=== PATIENT | female | born 1940 | race Caucasian/White ===

== ENCOUNTER 2017-03-22 00:19 | Inpatient (IN) ==
[2017-03-22] MEDS ORDERED: ASPIRIN PO STA (00:25)
[2017-03-22] MEDS ORDERED: G.I. COCKTAIL PO ONE (01:26)
[2017-03-22] MEDS ORDERED: DILAUDID ONE ×2 (02:09→06:27)
[2017-03-22] MEDS ORDERED: ZOFRAN ONE (02:09)
[2017-03-22 02:11] LABS: MANUAL DIFF NEEDED? NO
[2017-03-22 02:15] LABS: BASO% 0.1 % (0.0-0.8); EOS# 0.05 X1000 (0.0-0.7); EOS% 0.7 % (0.0-10.0); HEMOGLOBIN 14.7 g/dL (12.0-16.0); IMM GRAN# 0.02 X1000 (0.0-0.04); IMM GRAN% 0.3 % (0.0-0.5); LYMPH# 0.78 X1000 (1.2-3.4); LYMPH% 10.6 % (20.5-51.1); MCH 29.2 PG (27-31); MCHC 33.4 g/dL (33-37); MCV 87.3 FL (81-99); MONO# 0.59 X1000 (0.11-0.59); MPV 10.4 FL (7.4-10.4); NEUT% 80.3 % (42.2-75.2); PLT 414 X1000 (130-400); RBC 5.04 XMIL (4.2-5.4)
[2017-03-22] MEDS ORDERED: DILAUDID IV ONE ×2 (02:16→06:25)
[2017-03-22] MEDS ORDERED: ZOFRAN IV ONE (02:16)
[2017-03-22 02:32] LABS: INR 1.04; PROTIME 10.9 Seconds (9.2-11.7); PTT 23.6 Seconds (22.0-36.0)
[2017-03-22 02:40] LABS: ALBUMIN 3.3 g/dL (3.5-5.0); CALCIUM 10.4 mg/dL (8.8-10.2); MAGNESIUM 1.6 mg/dL (1.5-2.7); POTASSIUM 2.9 mmol/L (3.5-5.1); TOTAL PROTEIN 7.4 g/dL (6.3-8.3)
[2017-03-22] MEDS ORDERED: PROTONIX 80 MG in NS 80 ML IV ONE (04:42)
[2017-03-22] MEDS ORDERED: CARAFATE LIQUID PO ONE (04:42)
--- NOTE | 2017-03-22 04:48 | PROVIDER DOCUMENTATION ---
This chart was entered by Shawna Bella Scribe, acting as scribe for Brian Payne MD. HPI-Chest Pain - General Chief Complaint: Generalized Pain Stated Complaint: CP Time Seen by Provider: 03/22/17 01:16 Source: patient Allergies/Adverse Reactions: Patient Allergies Allergy/AdvReac Type Severity Reaction Status Date / Time Sulfa (Sulfonamide Allergy Intermediate NAUSEA Verified 03/22/17 01:45 Antibiotics) Home Medications: Home Medication List Medication Instructions Recorded Confirmed Last Taken Type Lisinopril/Hydrochlorothiazide 1 each PO DAILY 10/06/13 03/22/17 03/21/17 07:00 History [Lisinopril-Hctz 20-25 mg Tab] - History of Present Illness-CP Nature of Presenting Problem: 76 Y/O F presents to ED with CP. Pt states that she has lower epigastric, describes the pain as "hurt". States radiates arsenio back . Similar episode prior treated in [facility], received GI cocktail states felt better received a Rx and did not fill. Location: reports: epigastric Chest Pain Radiation: reports: back. denies: no radiation, arms, neck, shoulders Quality of Pain: reports: aching Severity in ED: moderate Onset/Duration: 24 hours ago Timing: still present Context/Activities at Onset: reports: none Associated Symptoms: reports: back pain. denies: fever/chills, nausea, shortness of breath Nitro Today/Relief: no nitro taken today Aspirin Treatment Today: no aspirin today Review of Systems - Adult - REVIEW OF SYSTEMS - ADULT Constitutional: denies: chills, fever Eyes: reports: no symptoms reported Ears, Nose, Mouth & Throat: reports: no symptoms reported Cardiovascular: reports: chest pain. denies: palpitations, syncope Respiratory: denies: cough, shortness of breath Gastrointestinal: reports: no symptoms reported Genitourinary: reports: no symptoms reported Musculoskeletal: reports: no symptoms reported Integumentary: reports: no symptoms reported Neurological: reports: no symptoms reported Psychiatric: reports: no symptoms reported Endocrine: reports: no symptoms reported Hematologic/Lymphatic: reports: no symptoms reported Allergic/Immunologic: reports: no symptoms reported All Other Systems: Reviewed and Negative Past History - Adult - PAST MEDICAL HISTORY-ADULT Review of Records: reports: Old Records Reviewed, Nursing Assessment Review, Medications Reviewed, Social history reviewed & non-contributory. Respiratory: reports: asthma Gastrointestinal: reports: other (rupurted esophagus) - PRIOR SURGERIES/PROCEDURES Surgical/Procedure History: reports: other (esophageal ruptured) - IMMUNIZATION STATUS Childhood Immunizations: See Nurse Assessment Flu Vaccine: See Nurse Assessment - SOCIAL HISTORY Smoking: quit greater than 1 year Substance Use: none/never Alcohol Use Frequency: never Physical Exam-General - PHYSICAL EXAM-ADULT Initial Vital Signs Reviewed: Yes - CONSTITUTIONAL General Appearance: appears well, alert, no apparent distress - EYES Eyes: PERRL/EOMI, pink conjunctivae - HEAD, EARS, NOSE, MOUTH & THROAT HENMT: normocephalic/atraumatic, moist mucous membranes, normal ENT inspection, TMs normal, pharynx normal - NECK Neck: non-tender, full range of motion, supple, normal inspection - RESPIRATORY Respiratory: chest non-tender, lungs clear, normal breath sounds - CARDIOVASCULAR Cardiovascular: normal peripheral pulses, regular rate, rhythm, no edema, no gallop, no JVD, no murmur - CHEST (BREASTS) Chest/Breast: tenderness (with pressure when pressing on abdomen, causes epigastric pain to worsen) - GASTROINTESTINAL (ABDOMEN) Abdominal Exam: normal bowel sounds, non tender, soft, no organomegaly, no pulsatile mass - LYMPHATIC Lymphatic: no adenopathy - MUSCULOSKELETAL Back Exam: normal inspection, no CVA tenderness, no vertebral tenderness Extremity: normal range of motion, non-tender, normal gait, normal inspection - SKIN Integumentary: normal color, normal turgor, warm/dry - NEUROLOGIC Neurologic: ob scrub tech II-XII nml as tested, no motor/sensory deficits - PSYCHIATRIC Psych/Mental Status: normal mood/affect, normal thought content, normal thought process, oriented x 3 Progress - PLAN OF CARE/RESULTS Progress/Plan/Lab Results: Vital Signs - 8 hr 03/22/17 00:27 Temperature 96.9 F L Pulse Rate 77 Respiratory Rate 20 Blood Pressure 99/61 O2 Sat by Pulse Oximetry 95 Laboratory Results - last 24 hr 03/22/17 03/22/17 03/22/17 01:50 01:50 01:50 WBC 7.35 RBC 5.04 Hgb 14.7 Hct 44.0 MCV 87.3 MCH 29.2 MCHC 33.4 RDW Std Deviation 14.0 Plt Count 414 H MPV 10.4 Immature Gran % (Auto) 0.3 Neut % (Auto) 80.3 H Lymph % (Auto) 10.6 L [place] % (Auto) 8.0 Eos % (Auto) 0.7 Baso % (Auto) 0.1 Immature Gran # (Auto) 0.02 Neut # (Auto) 5.90 Lymph # (Auto) 0.78 L Boss[place] # (Auto) 0.59 Eos # (Auto) 0.05 Baso # (Auto) 0.01 PT INR PTT (Actin FS) D-Dimer 4.72 H Sodium 140 Potassium 2.9 L Chloride 95 L Carbon Dioxide 26 Anion Gap 19 BUN 12 Creatinine 1.0 H Estimated GFR/1.73 m2 54 BUN/Creatinine Ratio 12 Glucose 115 H Calculated Osmolality 280 Calcium 10.4 H Magnesium 1.6 Total Bilirubin 1.00 AST 394 H ALT 505 H Alkaline Phosphatase 77 Creatine Kinase 33 Troponin T Xxc-M-Yaiaxbmxmhw Pept Total Protein 7.4 Albumin 3.3 L Globulin 4.1 Albumin/Globulin Ratio 0.8 Lipase 03/22/17 03/22/17 03/22/17 01:50 01:50 01:50 WBC RBC Hgb Hct MCV MCH MCHC RDW Std Deviation Plt Count MPV Immature Gran % (Auto) Neut % (Auto) Lymph % (Auto) [place] % (Auto) Eos % (Auto) Baso % (Auto) Immature Gran # (Auto) Neut # (Auto) Lymph # (Auto) [place] # (Auto) Eos # (Auto) Baso # (Auto) PT 10.9 INR 1.04 PTT (Actin FS) 23.6 D-Dimer Sodium Potassium Chloride Carbon Dioxide Anion Gap BUN Creatinine Estimated GFR/1.73 m2 BUN/Creatinine Ratio Glucose Calculated Osmolality Calcium Magnesium Total Bilirubin AST ALT Alkaline Phosphatase Creatine Kinase Troponin T < 0.010 Zsx-G-Tvhmeotslaw Pept 1199 H Total Protein Albumin Globulin Albumin/Globulin Ratio Lipase 03/22/17 01:50 WBC RBC Hgb Hct MCV MCH MCHC RDW Std Deviation Plt Count MPV Immature Gran % (Auto) Neut % (Auto) Lymph % (Auto) [place] % (Auto) Eos % (Auto) Baso % (Auto) Immature Gran # (Auto) Neut # (Auto) Lymph # (Auto) [place] # (Auto) Eos # (Auto) Baso # (Auto) PT INR PTT (Actin FS) D-Dimer Sodium Potassium Chloride Carbon Dioxide Anion Gap BUN Creatinine Estimated GFR/1.73 m2 BUN/Creatinine Ratio Glucose Calculated Osmolality Calcium Magnesium Total Bilirubin AST ALT Alkaline Phosphatase Creatine Kinase Troponin T Byh-C-Gksysbeofuz Pept Total Protein Albumin Globulin Albumin/Globulin Ratio Lipase 19 Orders Category Date Time Status Cardiac Monitoring DIRECTED Care 03/22/17 00:25 Active Saline Loc NOW Care 03/22/17 00:25 Active ANGIOGRAM/PULMONARY ARTERIES [CT] Stat Exams 03/22/17 02:55 Taken CHEST-2 VIEWS [RAD] Stat Exams 03/22/17 00:25 Taken CBC WITH ELECTRONIC DIFF [HEME] Stat Lab 03/22/17 01:50 Completed CK PROFILE [SP CHEM] Stat Lab 03/22/17 01:50 Completed COMPREHENSIVE METABOLIC PANEL [CHEM] Stat Lab 03/22/17 01:50 Completed D-DIMER [CHEM] Stat Lab 03/22/17 01:50 Completed LIPASE [CHEM] Stat Lab 03/22/17 01:50 Completed MAGNESIUM [CHEM] Stat Lab 03/22/17 01:50 Completed PRO B-NATRIURETIC PEPTIDE Stat Lab 03/22/17 01:50 Completed PROTIME WITH INR [COAG] Stat Lab 03/22/17 01:50 Completed PTT [COAG] Stat Lab 03/22/17 01:50 Completed TROPONIN T Stat Lab 03/22/17 01:50 Completed Aspirin Med 03/22/17 00:25 Discontinued 325 mg PO STAT STA Hydromorphone [Dilaudid] Med 03/22/17 02:09 Discontinued 1 mg .ROUTE .STK-MED ONE Hydromorphone [Dilaudid] Med 03/22/17 02:16 Discontinued 1 mg IV NOW ONE Lido/Stallings Alk/Al&mg Hydrox [G.i. Cocktail] Med 03/22/17 01:26 Discontinued 30 ml PO NOW ONE Ondansetron [Zofran] Med 03/22/17 02:09 Discontinued 4 mg .ROUTE .STK-MED ONE Ondansetron [Zofran] Med 03/22/17 02:16 Discontinued 4 mg IV NOW ONE Pantoprazole [Protonix] 80 mg Med 03/22/17 04:42 Active 0.9% Sodium Chloride Inj [Ns] 80 ml IV NOW Sucralfate [Carafate Liquid] Med 03/22/17 04:42 Discontinued 1 gm PO NOW ONE EKG [EKG] Stat Ther 03/22/17 00:25 Ordered During exam pt stated that the pain was worsened by Dr. Foss' pressing on her stomach worssened the Epigastric pain. Result Diagrams: 03/22/17 01:50 03/22/17 01:50 - REASSESSMENT Reassessment #1 Time Reassessed: 03:01 (PAIN MUCH BETTER, RE EXAM OF ABDOMEN REVEALS + OSBORNE'S SIGN) Status: improving - EKG 1 Time of EKG reading by physician:: 00:28 EKG Read and Signed by:: Brian Payne EKG Interpretation (*Must complete 3 of following elements*): Abnormal Rate: 77 Rhythm: SR w/ marked Sinus arrhythmia w/ occassional premature ventricular complexe [place]: left (deviation) QRS: LVH (with repolarization abnormality) Comments: Prolonged QT, Abnormal ECG - XRAY 1 XRAY Study: Chest Impression: Normal XRAY Interpretation: NAD - CT/MRI 1 CT Study: Angiogram Impression: Abnormal (11.7 mm hypodense hepatic lobe mass, trace ascites, distal esophagitis) Departure - Departure Time of Disposition Decision: 04:40 DIAGNOSIS: Esophagitis, Liver mass, right lobe Disposition: ADMITTED INPATIENT 09 Certified Medical Emergency: Emergent Condition: Good Referrals and Follow-Ups: Tao Murphy [Primary Care Provider] - - Critical Care Note This patient required my direct personal management.: No This chart was documented by the indicated scribe, (Shawna Bella Scribe) and accurately reflects the services I performed and decisions made by me, Brian Payne MD, as attested by the provider's signature.
--- NOTE | 2017-03-22 05:43 | EKG Report ---
Test Performed on : 03/22/2017 00:28:07 AM Test Reason : Chest Pain Blood Pressure : / mmHG Vent. Rate : 077 BPM Atrial Rate : 077 BPM P-R Int : 154 ms QRS Dur : 094 ms QT Int : 456 ms P-R-T Axes : -01 -39 -04 degrees QTc Int : 516 ms Sinus rhythm. with marked sinus arrhythmia. with occasional premature ventricular complexes. Left axis deviation Left ventricular hypertrophy with repolarization abnormality Prolonged QT Abnormal ECG When compared with ECG of 20-FEB-2017 13:42, premature ventricular complexes. are now present Inverted T waves have replaced nonspecific T wave abnormality in Inferior leads QT has lengthened Unconfirmed Result
--- NOTE | 2017-03-22 06:42 | Diag Imaging Result Document ---
PROCEDURE NAME: ANGIOGRAM/PULMONARY ARTERIES - 03/22/2017 CT CHEST WITH INTRAVENOUS CONTRAST: COMPARISON: 02/20/2017. FINDINGS: The timing is somewhat suboptimal, however, there are no filling defects within the pulmonary arteries or their main branches. The heart is enlarged. No pleural effusions. The ascending aorta is stable at 4 cm. No aortic dissection. There is fluid in the esophagus. No enlarged mediastinal or hilar lymph nodes. Stable 8 mm nodule in the right upper lobe. There is atelectasis in the lower lungs. No consolidation. No bronchiectasis. Limited images through the upper abdomen reveal a cholecystectomy with a tiny amount of fluid about the liver and spleen. There is a 12 mm nonspecific hypodense nodule inferiorly within the liver. The spleen is not enlarged. IMPRESSION: 1. No pulmonary emboli. 2. Cardiomegaly. 3. Stable right upper lobe nodule. 4. Calcified left hilar lymph nodes. 5. Fluid distended esophagus may represent gastroesophageal reflux. 6. Basilar atelectasis. 7. Trace fluid in the pelvis with a cholecystectomy and a nonspecific hypodense nodule within the liver. A preliminary report was given at 4:30 a.m..
[2017-03-22] MEDS: POTASSIUM CHLORIDE 20 MEQ/SWI 20 MEQ/100 ML IVPB IV SCH ×2 (06:43→14:28)
--- NOTE | 2017-03-22 06:48 | Diag Imaging Result Document ---
PROCEDURE NAME: CHEST-2 VIEWS - 03/22/2017 FRONTAL AND LATERAL SITTING CHEST, TWO VIEWS: COMPARISON: 02/20/2017. FINDINGS: Poor inspiratory effort. The heart is mildly enlarged. The vessels are not distended. No pleural effusions. No consolidation. No free air beneath the diaphragm. IMPRESSION: Poor inspiratory effort with mild cardiomegaly.
[2017-03-22] MEDS ORDERED: TYLENOL PO PRN (07:38)
[2017-03-22] MEDS ORDERED: SODIUM CHLORIDE 0.9% INJ SCH (07:38)
[2017-03-22] MEDS ORDERED: SALINE LOCK IV FLUID XX ONE (07:38)
--- NOTE | 2017-03-22 10:20 | Diag Imaging Result Document ---
PROCEDURE NAME: US ABDOMEN-COMPLETE - 03/22/2017 ABDOMINAL ULTRASOUND: FINDINGS: The liver contains a cyst in the right lobe measuring 11 x 13 mm. The pancreatic body is normal in appearance, and the remainder is not well seen. The aorta and inferior vena cava are normal in appearance where they are visible. The gallbladder is surgically absent. The common bile duct is dilated to 14 mm but this may be physiologic. There is antegrade flow in the portal vein. The spleen is not enlarged. The kidneys are without evidence of hydronephrosis or mass. There is some shadowing from the central renal echo complex in the left kidney which may be due to a stone measuring 16 mm in greatest dimension. IMPRESSION: Left nephrolithiasis. Dilatation of the common bile duct. This may be physiologic in a postcholecystectomy state. The lesion demonstrated on CT on 03/22/2017 in the inferior right hepatic lobe is apparently a cyst.
[2017-03-22] MEDS: ZOFRAN IV PRN ×2 (10:27→19:48)
[2017-03-22] MEDS: NS 1,000 ML IV SCH (10:28)
[2017-03-22] MEDS: LOVENOX SUBQ SCH (10:36)
--- NOTE | 2017-03-22 13:13 | HISTORY AND PHYSICAL ---
PRIMARY CARE PROVIDER: The patient does not have a primary care provider. DATE AND TIME: 03/22/2017 at 0630 hours. CHIEF COMPLAINT: Chest pain. HISTORY OF PRESENT ILLNESS: Ms. Kaur is a 76-year-old, female with a past medical history most notable for asthma, gastroesophageal reflux disease and hypertension. She presented tonight with initial stated complaint of chest pain, although upon evaluation in the ER this was found to be more epigastric pain, as well as right upper quadrant pain. The patient states that she was seen approximately 1 month ago at [facility] for same complaint. She was given a prescription for reflux disease, although did not get this filled stating that she felt better. The patient complains of epigastric pain that radiates straight through to her back. The patient was evaluated for cardiac involvement in the ER. First set of CK and troponin were negative. EKG showed sinus rhythm with marked sinus arrhythmia and occasional PVCs at a rate of 77, QTc was 516. Upon evaluation of the patient's CMP, she did have elevated AST and ALT, as well as an elevated D- dimer of 4.72 with a previous D-dimer approximately 1 month ago of 0.81. Due to these findings, Dr. Payne did order a CTA of the chest which showed no pulmonary embolism, although did show cardiomegaly, a full distended esophagus which may represent gastroesophageal reflux disease, bibasilar atelectasis, with also findings of a 12 mm nonspecific hypodense nodule inferiorly within the liver. The patient denies any headache, dizziness, shortness of breath. She has had some nausea and did report 1 episode of vomiting a day or 2 ago. She denies any hematemesis. She denies any diarrhea or constipation, stating that her last bowel movement was yesterday. She also denies any hematochezia or melena. She denies any dysuria or urinary frequency , or pain, numbness or tingling or swelling in extremities. She denies any fever, body aches or chills. She denies any previous known history of congestive heart failure or known history of pulmonary embolism or DVT. At this time, we will admit the patient for further treatment evaluation of her liver mass and esophagitis. REVIEW OF SYSTEMS: A 12 point review of systems was conducted with the patient. All were negative, except for pertinent positives mentioned in the above HPI. PAST MEDICAL HISTORY: 1. Asthma. 2. Gastroesophageal reflux disease. 3. Hypertension. PAST SURGICAL HISTORY: 1. Appendectomy. 2. Cholecystectomy. 3. Hysterectomy. 4. Ruptured esophagus repair in 1994 secondary to food impaction. SOCIAL HISTORY: The patient denies any previous history of tobacco, alcohol or illicit drug use. She currently lives with her son. FAMILY HISTORY: Positive for history of Alzheimer in her mother. ALLERGIES: Patient reports allergy to sulfa. HOME MEDICATIONS: The patient does not have any prescription medications that are prescribed to her, but she states that she has been taking her son's lisinopril/ hydrochlorothiazide 20/25 mg tablet once daily as needed for high blood pressure. DIAGNOSTIC DATA AND LABORATORY RESULTS: White blood cell count 7.3, hemoglobin 14.7, hematocrit 44, platelet count is 414. PT 10.9, INR 1.04, PTT 23.6, D-dimer 4.72. Sodium 140, potassium 2.9, chloride 95, bicarbonate 26, BUN is 12, creatinine 1.0. GFR 54. Glucose 115. Calcium is 10.4, magnesium 1.6. Total bilirubin is 1.00, AST is 394, ALT is 504. Alkaline phosphatase is 77, CK 33, troponin less than 0.01 with a proBNP of 1199. Lipase was 19. EKG shows a sinus rhythm with marked sinus arrhythmia with occasional PVCs at a rate of 77. QTc is 516. Chest x-ray shows a poor inspiratory effort with mild cardiomegaly per radiologist. CT of the thorax showed no pulmonary embolus. Cardiomegaly. Stable right upper lobe nodule. Calcified left hilar lymph node. Full distended esophagus which may represent gastroesophageal reflux. Bibasilar atelectasis. Trace fluid in the pelvis with a cholecystectomy and a nonspecific hypodense nodules within the liver, which measures 12 mm. PHYSICAL EXAMINATION: VITAL SIGNS: Temperature 96.9 degrees, heart rate 63, respirations 18, blood pressure 124/82. Oxygen saturation is 99% on room air. GENERAL: Ms. Kaur is a very pleasant, 76-year-old female, who is resting comfortably in the ER. She is in no acute distress. She was awake, alert, able to answer all questions appropriately. HEENT: Head is atraumatic, normocephalic. Pupils are equal, round, reactive to light, 3 mm bilaterally. Conjunctivae were pink. Oral mucosa was moist. Oropharynx is clear. NECK: Supple. Trachea midline. Patient did have JVD noted upon examination. No carotid bruits noted upon auscultation bilaterally. CARDIOVASCULAR: Patient has normal S1, S2. She did have a systolic murmur noted, although no other gallops or rubs present. Heart rate is regular rate in the 70s that has a slightly irregular rhythm. PULMONARY: Patient has symmetrical chest expansion bilaterally. Lung sounds were clear to auscultation in bilateral upper lung dominguez. The bilateral lower lung dominguez did have crackles noted. ABDOMEN: Soft, nondistended, although the patient did have tenderness noted upon palpation in the epigastric area and right upper quadrant. No rebound tenderness noted. Bowel sounds are present all 4 quadrants and normoactive. EXTREMITIES: No cyanosis, clubbing, or edema noted. Pulses, motor and sensory were intact in all extremities. Pedal pulses are 2+ bilaterally. Capillary refills less than 3. INTEGUMENTARY: The patient's skin is pink, warm, dry and intact. No lesions or sores noted. NEUROLOGICAL: The patient is alert and oriented x3. Cranial nerves 2-12 are grossly intact. ASSESSMENT AND PLAN: 1. Liver mass. As previously mentioned, the patient does have a 12 mm nonspecific hypodense nodule within the liver noted. For further evaluation of this, we have ordered for the patient to have complete abdominal ultrasound this morning. We have also placed a consult with gastroenterology with Dr. Yousif, and we will await their evaluation and further recommendations. 2. Gastroesophageal reflux disease. We will keep the patient on Protonix 40 mg intravenous every 24 hours and await further evaluation and recommendations from gastroenterology. 3. Hypokalemia. We will give the patient 40 mEq of potassium intravenous due to her nausea and reported acid reflux and being on nothing by mouth at this time for abdominal ultrasound this morning. We will continue to follow. 4. Possible new onset of congestive heart failure. The patient does have jugular venous distention noted upon examination, as well as bilateral crackles in lung bases. She also did have a slight systolic murmur noted as well. An elevated proBNP of 1199. We have ordered for the patient to have an echocardiogram this morning, and we will continue to follow closely. 5. Hypertension. The patient reports that she has a history of hypertension, although her blood pressure in the emergency room has been within normal limits. We will monitor this closely and implement antihypertensive medications as needed. Her lisinopril/ hydrochlorothiazide tablets that she reports that she has been taking is not her prescription; it was her son's prescription. 6. Asthma. The patient reports that she does not currently take any medications for this, although does have a history of asthma. We will place as-needed DuoNeb treatment and will continue to follow. The patient was placed on the medical floor with telemetry. She will have vital signs q. 8 hours. We will do strict intake and output q. [address] her on daily weights. We will continue to do a series of cardiac enzymes and will repeat a CBC, CMP, and magnesium tomorrow morning. We also placed an order for a urinalysis and are waiting on these results at this time, as well as the results of abdominal ultrasound and echocardiogram. DVT prophylaxis provided with Lovenox 40 mg subcutaneous q. 24 hours. We will treat her pain with Dilaudid 1 mg IV q. 3 hours p.r.n. Other orders and recommendations pending hospital course, diagnostic studies and physician evaluation. Dictated by NU Curtis for Ramsey Elliott MD cc: MD FRANCISCA Hayes
[2017-03-22 14:25] LABS: URINE CULTURE NEEDED? NO; URINE SOURCE CLEAN CATCH
[2017-03-22] MEDS: DILAUDID IV PRN ×3 (14:29→23:53)
[2017-03-22 14:34] LABS: URINE MICRO REVIEW NEEDED? YES
[2017-03-22 14:40] LABS: BILIRUBIN URINE MODERATE (NEGATIVE); BLOOD URINE NEGATIVE (NEGATIVE); COLOR YELLOW; GLUCOSE URINE NEGATIVE (NEGATIVE); LEUKOCYTES URINE NEGATIVE (NEGATIVE); NITRITE URINE NEGATIVE (NEGATIVE); PROTEIN URINE 50 mg/dL (NEGATIVE); TURBIDITY URINE CLEAR (CLEAR); UR EPITHELIAL CELLS <10 /HPF (<10); URINE BACTERIA NEGATIVE /HPF; URINE WBC <10 /HPF (<10); UROBILINOGEN URINE NORMAL (NORMAL)
[2017-03-22 14:57] LABS: SP GRAVITY URINE > 1.030
[2017-03-22] MEDS: DUONEB (A & A) INH PRN (15:23)
--- NOTE | 2017-03-22 16:31 | PROGRESS NOTE ---
DATE: 03/22/2017 76-year-old who came in with chest pain. I believe she has been followed by Dr. Em. She has a past medical history most notable for asthma, gastroesophageal reflux, hypotension. She presented on 03/22/2017 with initial steady complaint of chest pain although on evaluation in the emergency room, she was found to have epigastric pain as well as right upper quadrant pain. The patient states that she was approximately 1 month ago at [facility] for some complaint and was given a prescription for reflux disease although she not get this filled since she felt better. Patient complains of epigastric pain. It radiates through to her back. The patient evaluated for cardiac evaluation in the emergency room. First set of CPK and troponin was negative. EKG showed sinus rhythm, marked sinus arrhythmia with PVCs at a rate of 77. ASSESSMENT AND PLAN: 1. Apparently has a liver mass, previously mentioned, 12 mm nonspecific hypodense nodule within the liver. Dr. Yousif is going to follow. She has a history gastroesophageal reflux. She is on Protonix. 2. Hyperkalemia. 3. Possible onset of congestive heart failure. She did have jugular venous distention. Bilateral crackles in the bases. Slight systolic murmur. 4. Hypertension. 5. Asthma. Review of orders: I do not see any change right now. She is getting a Protonix drip. Getting normal saline at 65 mL an hour. Abdominal ultrasound done this morning, left nephrolithiasis, dilatation of the common bile duct. This may be physiologic in a post cholecystectomy state. The lesion demonstrated on CT on 03/22/2017 the inferior right hepatic lobe is apparently a cyst. Pulmonary arteriogram was negative. No pulmonary emboli. There is trace fluid in the pelvis with cholecystectomy and nonspecific hypodense nodule within the liver. Patient is feeling better. Continue present orders. cc: Patrick Sorto MD
[2017-03-22] MEDS: SODIUM CHLORIDE 0.9% INJ SCH (17:44)
[2017-03-22] MEDS: PROTONIX IV SCH (17:44)
--- NOTE | 2017-03-22 20:23 | ECHO REPORT ---
ORDER DATE: 03/22/2017 MEASUREMENTS: Left ventricular end-diastolic diameter 3.8, end-systolic diameter 2.4, posterior wall thickness 1.4, septal thickness 1.3, left atrium 3.8, aortic root 3.4. SUMMARY: 1. Technically difficult study due to limited acoustic window quality. 2. Trileaflet aortic valve demonstrates mild aortic valve sclerosis with adequate aortic valve opening evident. Peak gradient across the aortic valve is 25 mmHg with a mean gradient of 8.8 mmHg. Gradient likely elevated in setting of hyperdynamic left ventricle. Mitral and tricuspid valves are without structural abnormality with trace mitral regurgitation and mild tricuspid regurgitation. Pulmonic valve is without structural abnormality with trace pulmonic regurgitation. The estimated systolic PA pressure by Doppler is 30 mmHg. The aortic root is normal in size. 3. Normal left ventricular chamber size with mild concentric left hypertrophy is demonstrated. Estimated left ejection fraction appears to be at least 70%. No regional wall motion abnormality is evident. Left atrium is mildly enlarged. Doppler suggests grade 1 left ventricular diastolic dysfunction due to impaired relaxation. Left atrium is mildly enlarged. Right atrium and right ventricle are normal in size with preserved right ventricular systolic function. 4. No pericardial effusion. 5. Appearance of inferior vena cava suggests normal central venous pressure. CONCLUSIONS: 1. Mild aortic valve sclerosis without significant stenosis with trace aortic regurgitation. 2. Mild tricuspid regurgitation. 3. Mild concentric left hypertrophy with estimated left ejection fraction at least 70%. 4. Grade 1 left ventricular diastolic dysfunction suggested. 5. Mild left atrial enlargement. cc: Hira Newman MD
[2017-03-23] MEDS: DILAUDID IV PRN (04:09)
[2017-03-23] MEDS: NS 1,000 ML IV SCH (04:11)
[2017-03-23] MEDS: SODIUM CHLORIDE 0.9% INJ SCH ×2 (05:20→18:09)
[2017-03-23] MEDS: PROTONIX IV SCH ×2 (05:20→18:11)
[2017-03-23] MEDS ORDERED: PROTONIX IV SCH (06:00)
[2017-03-23 06:44] LABS: BASO% 0.8 % (0.0-0.8); EOS# 0.01 X1000 (0.0-0.7); EOS% 0.2 % (0.0-10.0); HEMATOCRIT 44.5 % (37.0-47.0); HEMOGLOBIN 14.3 g/dL (12.0-16.0); IMM GRAN# 0.08 X1000 (0.0-0.04); IMM GRAN% 1.6 % (0.0-0.5); LYMPH# 0.55 X1000 (1.2-3.4); LYMPH% 11.1 % (20.5-51.1); MANUAL DIFF NEEDED? YES; MCH 28.9 PG (27-31); MCHC 32.1 g/dL (33-37); MCV 90.1 FL (81-99); MONO# 0.49 X1000 (0.11-0.59); MONO% 9.9 % (1.7-9.3); MPV 11.1 FL (7.4-10.4); NEUT% 76.4 % (42.2-75.2); PLT 348 X1000 (130-400); RBC 4.94 XMIL (4.2-5.4)
[2017-03-23 07:12] LABS: ALBUMIN 2.6 g/dL (3.5-5.0); MAGNESIUM 2.2 mg/dL (1.5-2.7); POTASSIUM 4.4 mmol/L (3.5-5.1); TOTAL BILIRUBIN 0.93 mg/dL (0.20-1.00); TOTAL PROTEIN 6.1 g/dL (6.3-8.3)
[2017-03-23 07:18] LABS: BANDS 10 % (0-1); LYMPHS 12 % (21-51); MONO 8 % (1-9)
[2017-03-23] MEDS: LOVENOX SUBQ SCH (09:04)
[2017-03-23] MEDS: DUONEB (A & A) INH PRN (09:17)
[2017-03-23] MEDS ORDERED: NS 500 ML IV ONE (12:25)
[2017-03-23] MEDS ORDERED: HALDOL IV ONE (14:07)
[2017-03-23] MEDS ORDERED: NS 1,000 ML IV SCH (15:00)
[2017-03-23] MEDS ORDERED: D50W SYRINGE ONE ×2 (15:51→22:18)
--- NOTE | 2017-03-23 15:52 | PROGRESS NOTE ---
DATE: 03/23/2017 SUBJECTIVE: To recall, Ms. Kaur was admitted on the . She came in with chest pain. She is a 76-year-old with a past medical history notable for asthma, gastroesophageal reflux, hypertension. She presented with initial stated chest pain. Evaluation in the emergency room she was found to have more epigastric pain as well as right upper quadrant pain. The patient states that she approximately 1 month ago was in [place] ER with this complaint and was given a prescription for reflux disease, although did not get this filled; she felt better. Patient complains epigastric pain radiates through to her back. The patient was evaluated and had cardiac involvement in the ER. First set of CPK and troponin were negative. EKG showed normal sinus rhythm, marked sinus rhythm versus PVCs. She was admitted. CT of the thorax showed no pulmonary embolus, stable right upper lobe nodule, calcified, left hilar lymph node, full distended esophagus which may represent gastroesophageal reflux. There was a questionable liver mass. However, on ultrasound, she had left nephrolithiasis and dilatation of the common bile duct. The lesion demonstrated on the CAT scan on the inferior right hepatic lobe was probably a cyst. Called this morning and blood pressure was low. She was moaning. We put her in Trendelenburg, gave her some fluid, and blood pressure has come up. She is confused. She is stating that she hurts all over. Any place you touch her it seems to hurt her. She remains afebrile. OBJECTIVE: Vital signs: Temperature 98.3 degrees, pulse 110, respirations 20, blood pressure 93/55. HEENT: Pupils are equal, round. Lungs: Clear in all lung dominguez. Cardiovascular: Regular rhythm and rate without murmur or S3. Abdomen: Soft. Skin: Warm and dry. LAB: White count 4,960, hematocrit 44, platelet count 348,000. Sodium 141, potassium 4.1, chloride 100, bicarb 19, BUN 31, creatinine 2.4. Blood sugar 70. Echocardiogram: Mild aortic valve sclerosis. Mild concentric LVH. Ejection fraction 70%. ASSESSMENT AND PLAN: We have given her quite a bit of fluid, fluid bolus, gave her 400 mL normal saline. She got Dilaudid last night. I think we are going to have to stay off of that. There is quite a bit of confusion and delirium right now. I gave her some Haldol. cc: Patrick Sorto MD
[2017-03-23] MEDS ORDERED: NARCAN ONE (16:00)
[2017-03-23 16:07] LABS: ALLEN TEST YES; BE -14.2 mmoll (-3.0-3.0); BLOOD TYPE ARTERIAL; DRAW SITE R RADIAL; METHB 1.7 % (0.0-1.5); O2(CT) 15.5 mL/dL (15.0-23.0); PCO2(98.6) 40 mmHg (35-45); PO2(98.6) 68 mmHg (60-100); SAMPLE BLOOD; SAO2 94.8 % (95.0-100.0)
[2017-03-23 16:10] LABS: pH(98.6) 7.15 (7.35-7.45)
[2017-03-23 16:11] LABS: MODALITY CANNULA
[2017-03-23] MEDS ORDERED: VANCOMYCIN 1 GM/NS 1 GM/250 ML IVPB IV ONE ×2 (16:20→16:30)
[2017-03-23] MEDS ORDERED: NS 1,000 ML IV ONE (16:22)
[2017-03-23] MEDS ORDERED: D50W SYRINGE IV ONE (16:22)
[2017-03-23] MEDS ORDERED: D5 NS 1,000 ML IV SCH (16:23)
[2017-03-23 16:43] LABS: URINE CULTURE NEEDED? NO; URINE SOURCE CATH
[2017-03-23 16:49] LABS: URINE MICRO REVIEW NEEDED? YES
[2017-03-23 16:53] LABS: BILIRUBIN URINE MODERATE (NEGATIVE); BLOOD URINE SMALL (NEGATIVE); COLOR YELLOW; GLUCOSE URINE NEGATIVE (NEGATIVE); LEUKOCYTES URINE NEGATIVE (NEGATIVE); NITRITE URINE NEGATIVE (NEGATIVE); PH URINE 5.5; PROTEIN URINE 50 mg/dL (NEGATIVE); TURBIDITY URINE HAZY (CLEAR); UR EPITHELIAL CELLS <10 /HPF (<10); URINE BACTERIA NEGATIVE /HPF; URINE RBC <10 /HPF (<10); URINE WBC <10 /HPF (<10); UROBILINOGEN URINE NORMAL (NORMAL)
[2017-03-23 16:56] LABS: URINE CASTS NONE SEEN
[2017-03-23] MEDS ORDERED: LEVOPHED 8 MG in D5 1/2 NS 250 ML IV SCH (17:00)
[2017-03-23] MEDS: ZOSYN 2.25 GM/NS 2.25 GM/50 ML IVPB IV SCH ×2 (17:14→23:01)
[2017-03-23] MEDS ORDERED: VANCOMYCIN IV PER PHARMACY MISC SCH (17:15)
[2017-03-23] MEDS: SODIUM BICARBONATE 8.4% 100 MEQ in D5W 1,000 ML IV SCH (17:19)
[2017-03-23] MEDS: LEVOPHED 8 MG in D5 1/2 NS 250 ML IV SCH (17:20)
[2017-03-23 17:53] LABS: SP GRAVITY URINE > 1.030
[2017-03-23] MEDS: D5 NS 1,000 ML IV SCH ×2 (18:07→22:59)
--- NOTE | 2017-03-23 18:16 | CONSULTATION ---
DATE OF CONSULTATION: 03/23/2017 REQUESTING PHYSICIAN: Dr. Patrick Sorto and the Hospitalist Service REASON FOR CONSULTATION: Shock, hemodynamic instability, possible coronary ischemia. HISTORY OF PRESENT ILLNESS: Ms. Kaur presented to the emergency department yesterday, 03/22/2017, with complaints of chest discomfort which turned out to be more over the epigastric area. Upon presentation, they did an EKG at 0028 hours which shows sinus rhythm with PVCs and a suspicious ST abnormality in leads V1, AVR and also leads I and AVL. The patient referred the pain to the epigastric area. They did a CT angio of the lungs which shows abnormality at the level of the esophagus, possible infiltration of the lung. No pulmonary embolism. Her D-dimer was elevated. Her white count upon presentation was 4960. She had 10% bands. Her D-dimer was 4.7. Her initial creatinine was 1.0. Today her creatinine is 2.4. The patient today at 3:30 p.m. developed unresponsiveness. She has had a 12- lead EKG done at that time which is 4:08 p.m. that shows sinus tachycardia without any definite acute ischemic changes. The patient is tachypneic. She is not very responsive. She is confused. Her extremities are very cool. The patient has been taken to the ICU for further care. We have been consulted because of concern about this presentation being cardiac. PAST MEDICAL HISTORY: The patient at this time cannot offer any past history. Review of records indicates that she has had COPD, asthma, hypertension. PAST SURGICAL HISTORY: Positive for previous ruptured esophagus due to food impaction. She has had cholecystectomy and hysterectomy. SOCIAL HISTORY: She is not a smoker. FAMILY HISTORY: Noncontributory for heart disease. ALLERGIES: She has had allergy to sulfa drugs. HOME MEDICATIONS: Lisinopril/hydrochlorothiazide. Present medications at this time include enoxaparin, Protonix, vancomycin, aspirin. PHYSICAL EXAMINATION: Right now, blood pressure is 93/55, pulse 110, temperature 98.3, respirations 20. She appears to be acutely ill, toxic. HEENT: No definite jugular venous distention. Chest shows diffusely diminished breath sounds at the bases. Heart sounds are tachycardic, regular. She does have a systolic murmur. She has some irregularity to her pulse. Abdomen: Not distended; however, it is very firm. She has guarding. She has tenderness in all 4 quadrants with positive rebound. Extremities showed coolness, decreased capillary refill, markedly decreased peripheral pulses. Neurologic: She is confused, toxic. DIAGNOSTIC DATA: Blood gases done at 4:00 p.m. showed pH of 7.15, pCO2 of 40, pO2 of 68. Her lactate is 6.7. Echocardiogram was done yesterday, reported by Dr. Newman indicating hyperdynamic left ventricular function, mild degree of aortic valve sclerosis, trace aortic regurgitation. IMPRESSION: 1. The patient presented with epigastric/chest discomfort. Thus far, we have 3 troponin levels, all of which are negative at 1:50 a.m., 10:00 a.m. and 5:20 p.m. Her EKG is nonspecific. ProBNP is elevated at 1199 which is about 4 times baseline. Albumin is low at 2.6. Creatinine went up to 2.4, indicating acute renal failure. Her baseline creatinine about a month ago was normal. The patient has acidosis, hypoperfusion, she has sepsis syndrome. Question of intraabdominal catastrophe. 2. The review of the CT scan of the chest shows significant coronary calcification, especially at the level of the left main coronary artery and also the right coronary artery. She probably has 3-vessel coronary artery disease. RECOMMENDATIONS: At this point in time, we really need to support her through her sepsis syndrome with pressors, oxygenation and optimize her pH. Cardiac toussaint, we will consider pressors to maintain adequate systemic perfusion. As far as acute cardiac intervention, I do not see any indication that we ought to do that. I would request probably evaluation by a banking consultant because her abdomen is suspicious on examination for acute abdominal process. We will follow her along with you. Thank you again for the opportunity to participate in her evaluation. The patient's condition is very serious, grave at this point in time. cc: Jeremy Brothers MD [facility]
[2017-03-23] MEDS: SOLU-CORTEF IV SCH (18:51)
[2017-03-23 18:52] LABS: ALLEN TEST NO; BE -14.2 mmoll (-3.0-3.0); BLOOD TYPE ARTERIAL; DRAW SITE R FEMORAL; METHB 1.9 % (0.0-1.5); O2(CT) 18.1 mL/dL (15.0-23.0); PCO2(98.6) 37 mmHg (35-45); PO2(98.6) 110 mmHg (60-100); SAMPLE BLOOD; SAO2 99.8 % (95.0-100.0); SRATE 14 BPM; THB 13.3 g/dL (11.5-17.4); TVOL 500 mL
[2017-03-23 18:55] LABS: MODALITY VENTILATOR; pH(98.6) 7.17 (7.35-7.45)
--- NOTE | 2017-03-23 18:55 | Diag Imaging Result Document ---
PROCEDURE NAME: CHEST/ABD TUBE PLACEMENT - 03/23/2017 PORTABLE UPRIGHT AP CHEST: COMPARISON: Compared to 03/22/2017. Interval placement of an endotracheal tube. The tip is located 3-4 cm above the hardeep. There is basilar atelectasis. There does appear to be free air beneath the diaphragm. IMPRESSION: 1. Endotracheal tube in good position. 2. Free air beneath the diaphragm. The ICU was called with the findings at 6:08 p.m.
--- NOTE | 2017-03-23 18:56 | CONSULTATION ---
DATE OF CONSULTATION: 03/23/2017 REASON FOR CONSULTATION: Possible surgical abdomen. HISTORY OF PRESENT ILLNESS: 76-year-old female, who was admitted to the hospital yesterday with complaints of chest pain, epigastric pain and right upper quadrant pain. Her history is gathered from her chart and talking with Dr. Sorto. The pain has been radiating through to her back and apparently has been going on intermittently for about a month. Since admission, she has had a giselle hospital course. Today she has become progressively more hypotensive and had respiratory failure requiring intubation which was ongoing at the time of my arrival to the bedside. No further history could be obtained from her but Dr. Sorto had examined her abdomen and felt like it was very tender and worrisome for perforation. OBJECTIVE: Vital signs: Her temperature this morning is 98.3, pulse is 116, blood pressure has been as low as 62/19. The systolic pressure is now a little over 100 after some fluid boluses and Levophed drip. General: She is sedated and getting intubated currently. Respiratory: She has bilateral breath sounds after intubation. CV: Tachycardic and regular. Gastrointestinal: Soft, nondistended. No obvious mass appreciated. The exam is limited by her sedation. LABORATORY: White blood cell count 4.9, hemoglobin 14, platelet count 348,000. PH is 7.15, pCO2 40, PaO2 68, bicarb 13, base deficit 14, lactate 6.7. BUN 31, creatinine 2.4. Sodium 141, potassium 4.4. AST 91, ALT 242, alkaline phosphatase 66, total bilirubin 0.9. IMAGING: A post intubation and abdominal x-ray obtained a few minutes ago has been called back by the radiologist apparently is positive for free air. ASSESSMENT AND PLAN: This is a 76-year-old female with perforated viscus and shock. She is currently being stabilized with her new breathing tube and we will plan exploratory laparotomy this evening. I have discussed this with her family. They understand that this is an emergency and there are significant risks of morbidity and mortality. They understand and wish to proceed. cc: Chance Florez MD
--- NOTE | 2017-03-23 18:58 | Diag Imaging Result Document ---
PROCEDURE NAME: KUB ABDOMEN - 03/23/2017 PORTABLE SUPINE ABDOMEN: The diaphragm is not included on this exam. No bowel obstruction. No organomegaly. The gallbladder has been removed. There are degenerative changes in the lumbar spine. Negative exam. There does appear to be free air beneath the diaphragm on the chest. The results were called by me to the ICU at 6:08 p.m.
[2017-03-23] MEDS: NEO-SYNEPHRINE 50 MG in NS 250 ML IV SCH (19:26)
[2017-03-23 20:37] LABS: BASO% 2.6 % (0.0-0.8); EOS# 0.02 X1000 (0.0-0.7); EOS% 0.2 % (0.0-10.0); HEMATOCRIT 39.5 % (37.0-47.0); HEMOGLOBIN 12.8 g/dL (12.0-16.0); IMM GRAN# 0.08 X1000 (0.0-0.04); LYMPH# 0.69 X1000 (1.2-3.4); LYMPH% 8.4 % (20.5-51.1); MANUAL DIFF NEEDED? YES; MCH 29.7 PG (27-31); MCHC 32.4 g/dL (33-37); MCV 91.6 FL (81-99); MONO# 0.72 X1000 (0.11-0.59); MONO% 8.8 % (1.7-9.3); MPV 11.3 FL (7.4-10.4); PLT 294 X1000 (130-400); RBC 4.31 XMIL (4.2-5.4)
[2017-03-23 20:59] LABS: BANDS 10 % (0-1); LYMPHS 16 % (21-51); MONO 10 % (1-9); POLYCHROM OCCASIONAL
[2017-03-23] MEDS ORDERED: LOVENOX SUBQ SCH (21:00)
[2017-03-23 21:07] LABS: CALCIUM 7.3 mg/dL (8.8-10.2); MAGNESIUM 2.1 mg/dL (1.5-2.7); TOTAL BILIRUBIN 0.73 mg/dL (0.20-1.00); TOTAL PROTEIN 5.1 g/dL (6.3-8.3)
[2017-03-23 21:24] LABS: CK INDEX 2.1 (0.0-2.5); CK-MB 34.75 ng/mL (0.0-5.0)
[2017-03-23] MEDS ORDERED: FENTANYL ONE (22:28)
[2017-03-23] MEDS ORDERED: D50W SYRINGE IV PRN (22:44)
[2017-03-23 23:14] LABS: CK-MB 29.99 ng/mL (0.0-5.0)
[2017-03-24] MEDS: SOLU-CORTEF IV SCH ×4 (00:39→18:29)
[2017-03-24] MEDS: ZOSYN 2.25 GM/NS 2.25 GM/50 ML IVPB IV SCH ×4 (03:44→22:24)
[2017-03-24] MEDS: LEVOPHED 8 MG in D5 1/2 NS 250 ML IV SCH ×2 (04:32→13:14)
[2017-03-24 04:37] LABS: ALLEN TEST YES; BE -12.7 mmoll (-3.0-3.0); BLOOD TYPE ARTERIAL; DRAW SITE R RADIAL; METHB 2.3 % (0.0-1.5); O2(CT) 17.5 mL/dL (15.0-23.0); PCO2(98.6) 33 mmHg (35-45); PO2(98.6) 100 mmHg (60-100); SAMPLE BLOOD; SAO2 98.1 % (95.0-100.0); SRATE 14 BPM; TVOL 500 mL; pH(98.6) 7.23 (7.35-7.45)
[2017-03-24 04:38] LABS: MODALITY VENTILATOR
[2017-03-24 05:25] LABS: BASO% 2.8 % (0.0-0.8); EOS# 0.05 X1000 (0.0-0.7); EOS% 0.4 % (0.0-10.0); HEMATOCRIT 38.6 % (37.0-47.0); HEMOGLOBIN 12.4 g/dL (12.0-16.0); IMM GRAN% 0.9 % (0.0-0.5); LYMPH# 0.81 X1000 (1.2-3.4); LYMPH% 6.9 % (20.5-51.1); MANUAL DIFF NEEDED? YES; MCH 29.2 PG (27-31); MCHC 32.1 g/dL (33-37); MCV 90.8 FL (81-99); MONO# 0.78 X1000 (0.11-0.59); MONO% 6.6 % (1.7-9.3); MPV 11.3 FL (7.4-10.4); NEUT% 82.4 % (42.2-75.2); PLT 281 X1000 (130-400); RBC 4.25 XMIL (4.2-5.4)
[2017-03-24 05:35] LABS: BANDS 8 % (0-1); LYMPHS 16 % (21-51); MONO 8 % (1-9)
[2017-03-24] MEDS: PROTONIX IV SCH ×2 (05:36→16:22)
[2017-03-24] MEDS: SODIUM CHLORIDE 0.9% INJ SCH ×2 (05:37→16:22)
[2017-03-24 05:55] LABS: ALBUMIN 1.7 g/dL (3.5-5.0); CALCIUM 7.1 mg/dL (8.8-10.2); POTASSIUM 4.2 mmol/L (3.5-5.1); TOTAL BILIRUBIN 0.6 mg/dL (0.20-1.00); TOTAL PROTEIN 4.5 g/dL (6.3-8.3)
[2017-03-24 06:18] LABS: CK INDEX 1.9 (0.0-2.5); CK-MB 48.46 ng/mL (0.0-5.0)
--- NOTE | 2017-03-24 07:26 | Diag Imaging Result Document ---
PROCEDURE NAME: CHEST-PORTABLE - 03/24/2017 PORTABLE CHEST: COMPARISON: Compared to 03/23/2017 FINDINGS: The endotracheal tube is in good position. No change in the right subclavian line or in the nasogastric tube. Heart remains mildly prominent. There are small pleural effusions with basilar atelectasis versus small infiltrates. The overall appearance is quite similar to the of the prior exam. IMPRESSION: Stable chest.
--- NOTE | 2017-03-24 07:53 | Diag Imaging Result Document ---
PROCEDURE NAME: CHEST-PORTABLE - 03/23/2017 PORTABLE CHEST: COMPARISON: Compared to a film taken earlier. FINDINGS: Interval placement of a right subclavian line. This is in good position with no postprocedural pneumothorax. A nasogastric tube has been placed which overlies the esophagus. Endotracheal tube remains in good position. There is stable baseline atelectasis with small effusion. IMPRESSION: Right subclavian and nasogastric tube in good position.
[2017-03-24] MEDS: D5 NS 1,000 ML IV SCH ×2 (07:58→18:32)
--- NOTE | 2017-03-24 09:30 | PROGRESS NOTE ---
DATE: 03/24/2017 SUBJECTIVE: Ms. Kaur went for surgery. Had a perforated ulcer repaired. Pretty good night. She is intubated. Blood pressure has come up nicely. Feeling better. She is sedated at the present time. Appears comfortable. OBJECTIVE: Vital signs: Temp 98 degrees, pulse 100, respirations 20, blood pressure 124/73. HEENT: Pupils are equal, round. Lungs: Clear in all lung dominguez. Cardiovascular: Regular rhythm and rate without murmur or S3. Abdomen: Soft. Skin: Warm and dry. Intake and output: Urine output about 720 mL. She put out almost 6 L yesterday which is encouraging. LAB: White count 11,750, hematocrit 38, platelet count 281,000. Sodium 140, potassium 4.2, chloride 106, bicarb 15, BUN 38, creatinine 2.8. Blood sugar 115, 94, 100, 103. DIAGNOSTIC STUDIES: Chest x-ray from this morning, stable chest. Endotracheal tube in good position. No change in the right subclavian line or in the nasogastric tube. Heart remains mildly prominent. Small pleural effusions with bilateral atelectasis versus small infiltrate. Appreciate Dr. Florez, Dr. Brothers, Dr. Gonzalez's help. ASSESSMENT AND PLAN: 1. Perforated viscus, perforated ulcer. For surgical exploratory laparotomy and repair. 2. Sepsis, perforated viscus with acidosis. Acidosis improving. Bicarb was 15. Anion gap is 19 this morning. Blood gases this morning, she had a pH is 7.15, is now 7.23, pCO2 33, PO2 is 100, O2 saturation is 98%. She is on spontaneous at a rate of 14, 70% FiO2, 500 tidal volume, and PEEP is 5. Better gas exchange. Acidosis improving. 3. Has a nasogastric tube in. 4. Review of her orders. We have her on broad-spectrum antibiotics which will continue. She is presently on vancomycin and Zosyn. 5. Lastly, her renal dysfunction. Suspect acute tubular necrosis. We will continue to follow. Ask Dr. Abarca to follow as well. Note that she has had 2 CT angiograms in the last couple of months with dye. cc: Patrick Sorto MD
[2017-03-24] MEDS ORDERED: ALBUMIN 25% IV ONE (10:35)
[2017-03-24] MEDS: NS IV SCH ×2 (11:09→12:00)
[2017-03-24] MEDS: ALBUMIN IV SCH ×2 (11:09→12:00)
[2017-03-24 11:25] LABS: URINE SOURCE CATH
[2017-03-24 11:32] LABS: URINE MICRO REVIEW NEEDED? YES
[2017-03-24 11:37] LABS: UR EPITHELIAL CELLS >10 /HPF (<10); URINE BACTERIA NEGATIVE /HPF
[2017-03-24 11:49] LABS: BILIRUBIN URINE LARGE (NEGATIVE); COLOR BROWN; GLUCOSE URINE NEGATIVE (NEGATIVE); TURBIDITY URINE TURBID (CLEAR); URINE CASTS GRANULAR PRESENT
--- NOTE | 2017-03-24 11:49 | PROGRESS NOTE ---
DATE: 03/24/2017 CHIEF COMPLAINT: Abdominal pain. SUBJECTIVE: Ms. Wei is intubated. She underwent laparotomy yesterday under Dr. Chance Florez. They found a perforated ulcer. She is still under sedation. She is on pressors right now and norepinephrine. OBJECTIVE: Blood pressure is 111/69, temperature is 98 degrees, pulse 102, respirations 28. She is sedated. HEENT: Unremarkable. Chest: Diminished breath sounds at the bases. Heart: Regular and rhythmic. No gallop or murmur noted. Abdomen: Diffusely tender. She grimaces when one presses the abdomen. Extremities: Coolness with decreased pulses. Neurologic: Sedated. DIAGNOSTIC DATA: Blood work shows white count is 11,750, hemoglobin 12.4, hematocrit 38.6, platelet count 281,000. Her blood gases today show pH is better at 7.23, pO2 is 100, pCO2 of 33. Sodium is 140, potassium 4.2. Her BUN is up to 38, creatinine has come down just a little bit to 2.8. AST has also come down to 123, ALT of 130. CPK went up to 2597. This is post laparotomy. CKMB fracture is 48.46. Index is 1.9 which is low. Troponin levels have been checked multiple times. The last 3 level from 8:15 last night, 10:28 last night and 4:35 this morning are 0.019, 0.014 and 0.021. They are still within negative range. Her EKG done today at 7 :05 showed sinus tachycardia with left axis deviation, diffuse ST-T abnormality in multiple leads precordial lateral. IMPRESSION: 1. The patient had perforated stomach with sepsis syndrome and septic shock. Her C-reactive protein was measured at 373.21. Her sedimentation rate was 25. She has leukocytosis. She is presently getting IV vancomycin and Zosyn. They are trying to wean her off of the Levophed at this time. 2. Coronary artery disease. This was evident on CT of the chest. She does not have definite indication of [id number] ND; however, her EKG is suspicious for ischemia. We will have to follow her very closely. 3. History of hypertension and history of chronic obstructive pulmonary disease. RECOMMENDATIONS: At this point in time, we will continue to follow her clinically. We will try to give her albumin and saline in boluses and try to wean her off of the Levophed. We will continue to monitor electrocardiograms and cardiac enzymes. Eventually we may consider at some point some sort of noninvasive testing; however, it will be done down the road , probably as an outpatient. At this point in time, her condition is serious, prognosis is guarded. We will follow her along. cc: Jeremy Brothers MD MTDD
[2017-03-24 11:50] LABS: BLOOD URINE LARGE (NEGATIVE); LEUKOCYTES URINE NEGATIVE (NEGATIVE); NITRITE URINE NEGATIVE (NEGATIVE); PROTEIN URINE 100 mg/dL (NEGATIVE); UROBILINOGEN URINE NORMAL (NORMAL)
[2017-03-24 11:54] LABS: URINE WBC 20-40 /HPF (<10)
[2017-03-24 14:33] LABS: CK INDEX 1.6 (0.0-2.5); CK-MB 29.42 ng/mL (0.0-5.0)
--- NOTE | 2017-03-24 16:01 | CONSULTATION ---
DATE OF CONSULTATION: 03/24/2017 REFERRING PHYSICIAN: Dr. Sorto. CHIEF COMPLAINT: Chest pain. HISTORY OF PRESENT ILLNESS: This is a 76-year-old female with past medical history of asthma, GERD and hypertension who presented to the hospital and was evaluated and found a perforated viscus. She was taken to surgery and is now in ICU on a ventilator. She is sedated and seems to be improving. We will continue to follow her ventilatory needs. REVIEW OF SYSTEMS: Unable to obtain at this time. PAST MEDICAL HISTORY: As mentioned in HPI, otherwise noncontributory. PAST SURGICAL HISTORY: Appendectomy, cholecystectomy and hysterectomy. Ruptured esophagus repair. Exploratory laparotomy. SOCIAL HISTORY: No history of tobacco, alcohol or illicit drugs. Lives at home with her son. FAMILY HISTORY: Notable for Alzheimer's. ALLERGIES: Sulfa. ACTIVE MEDICATIONS: Tylenol, DuoNeb, Solu-Cortef, vancomycin, morphine, Zofran , Protonix and Zosyn. PHYSICAL EXAMINATION: Vital Signs: Temperature 98, heart rate 103, respiratory rate 21, blood pressure 124/73 and oxygen saturation 99%. General: Lying in bed intubated. She seems to be stabilizing. HEENT: Normocephalic and atraumatic. ET tube in place. Cardiovascular: Regular rate and rhythm. S1-S2 present. Chest: Reduced entry. Abdomen: Soft. Bowel sounds present. LABS AND INVESTIGATIONS: WBC 11.75. RBCs 4.25. Hemoglobin 12.4, hematocrit 38.6, and platelet count 281,000. Sodium 140, potassium 4.2, chloride 106, carbon dioxide 15, anion gap 19, BUN 38, creatinine 2.8 and glucose 97. Chest x-ray was performed on 03/24/2017 and shows stable chest. ASSESSMENT AND PLAN: This is a 76-year-old female with past medical history mentioned in the HPI, that presented to the hospital with complaints of chest pain. She did have an emergency exploratory laparotomy for a ruptured viscus. She is currently in ICU on the ventilator. It appears she is doing somewhat better. She does have Respiratory failure, shock, sepsis with acidosis that appears to be improving. Continue broad-spectrum antibiotics. Ventilator management per Dr. Gonzalez. GI prophylaxis. Also, Dr. Abarca in consult for renal dysfunction. I appreciate recommendations. We will obtain daily blood gases and continue to monitor the ventilatory status. Further recommendations pending diagnostic studies. Thank for the courtesy of this consult. cc: MD FRANCISCA Arias
[2017-03-24] MEDS: SODIUM BICARBONATE 8.4% 100 MEQ in D5W 1,000 ML IV SCH (16:22)
[2017-03-24 23:01] LABS: UR PROT RANDOM 298.8 mg/dL
[2017-03-25] MEDS: SOLU-CORTEF IV SCH ×6 (01:03→18:28)
[2017-03-25] MEDS: D5 NS 1,000 ML IV SCH ×2 (01:04→10:32)
[2017-03-25] MEDS: ZOSYN 2.25 GM/NS 2.25 GM/50 ML IVPB IV SCH ×4 (04:07→22:42)
[2017-03-25] MEDS: PROTONIX IV SCH ×2 (05:07→17:36)
[2017-03-25 05:10] LABS: ALLEN TEST YES; BE -10.3 mmoll (-3.0-3.0); BLOOD TYPE ARTERIAL; DRAW SITE R RADIAL; METHB 1.9 % (0.0-1.5); O2(CT) 14.7 mL/dL (15.0-23.0); PCO2(98.6) 24 mmHg (35-45); PO2(98.6) 86 mmHg (60-100); SAMPLE BLOOD; SAO2 98.6 % (95.0-100.0); SRATE 14 BPM; THB 10.9 g/dL (11.5-17.4); TVOL 500 mL; pH(98.6) 7.36 (7.35-7.45)
[2017-03-25 05:12] LABS: MODALITY VENTILATOR
[2017-03-25 06:10] LABS: BASO% 0.4 % (0.0-0.8); EOS# 0.01 X1000 (0.0-0.7); EOS% 0.1 % (0.0-10.0); HEMATOCRIT 31.1 % (37.0-47.0); HEMOGLOBIN 10.5 g/dL (12.0-16.0); LYMPH# 0.72 X1000 (1.2-3.4); LYMPH% 4.4 % (20.5-51.1); MANUAL DIFF NEEDED? YES; MCH 29.7 PG (27-31); MCHC 33.8 g/dL (33-37); MCV 87.9 FL (81-99); MPV 11.6 FL (7.4-10.4); PLT 127 X1000 (130-400); RBC 3.54 XMIL (4.2-5.4)
[2017-03-25 06:29] LABS: BANDS 16 % (0-1); LYMPHS 6 % (21-51); MONO 6 % (1-9); NRBC 1 % (0-0)
--- NOTE | 2017-03-25 06:30 | EKG Report ---
Test Performed on : 03/24/2017 07:05:59 AM Test Reason : shock/septicemia/CAD/pneumonia Blood Pressure : / mmHG Vent. Rate : 102 BPM Atrial Rate : 102 BPM P-R Int : 150 ms QRS Dur : 080 ms QT Int : 332 ms P-R-T Axes : 003 -31 201 degrees QTc Int : 432 ms Sinus tachycardia. Left axis deviation Possible Anterior infarct (cited on or before 23-MAR-2017) ST \T\ T wave abnormality, consider lateral ischemia or non-ALEXANDRA MT Abnormal ECG When compared with ECG of 23-MAR-2017 16:10, (Unconfirmed) Serial changes of Anterior infarct present Confirmed by Angela TUCKER, Aaron Goodwin ([id number]) on 03/25/2017 8:23:28 AM
--- NOTE | 2017-03-25 06:32 | EKG Report ---
Test Performed on : 03/23/2017 4:10:18 PM Test Reason : unresponsive Blood Pressure : / mmHG Vent. Rate : 122 BPM Atrial Rate : 122 BPM P-R Int : 168 ms QRS Dur : 086 ms QT Int : 326 ms P-R-T Axes : 033 -26 -55 degrees QTc Int : 464 ms Sinus tachycardia. Possible Left atrial enlargement Inferior infarct , age undetermined Anterolateral infarct , age undetermined Abnormal ECG When compared with ECG of 22-MAR-2017 00:28, QRS voltage is decreased, consider pneumothorax, pericardial effusion Rhythmis baseline sway suggests increased work of breathing Confirmed by Angela TUCKER, Aaron Goodwin ([id number]) on 03/25/2017 8:12:58 AM
--- NOTE | 2017-03-25 06:36 | EKG Report ---
Test Performed on : 03/25/2017 05:46:32 AM Test Reason : shock/septicemia/CAD/pneumonia Blood Pressure : / mmHG Vent. Rate : 098 BPM Atrial Rate : 098 BPM P-R Int : 148 ms QRS Dur : 084 ms QT Int : 344 ms P-R-T Axes : -03 -31 -09 degrees QTc Int : 439 ms Normal sinus rhythm. with sinus arrhythmia. Left axis deviation Anterolateral infarct (cited on or before 23-MAR-2017) Abnormal ECG When compared with ECG of 24-MAR-2017 07:05, (Unconfirmed) Serial changes of Anterior infarct present Confirmed by Brittnee TUCKER, Lele Goodwin ([id number]) on 03/25/2017 8:25:08 AM
[2017-03-25 06:45] LABS: ALBUMIN 1.6 g/dL (3.5-5.0); POTASSIUM 4.8 mmol/L (3.5-5.1); TOTAL BILIRUBIN 0.86 mg/dL (0.20-1.00); TOTAL PROTEIN 4.5 g/dL (6.3-8.3)
[2017-03-25 07:10] LABS: CALCIUM 6.9 mg/dL (8.8-10.2)
[2017-03-25] MEDS ORDERED: NEO-SYNEPHRINE ONE (08:25)
[2017-03-25] MEDS ORDERED: EXTENSION SET 32 IN 4522 ONE (08:25)
[2017-03-25] MEDS ORDERED: NORCURON ONE (08:25)
[2017-03-25] MEDS ORDERED: LR 3,000 ML ONE (08:25)
[2017-03-25] MEDS ORDERED: ANESTHESIA PB SET 88 IN 5742 ONE (08:25)
[2017-03-25] MEDS ORDERED: CLAVE SECONDARY SET 11953 ONE (08:25)
[2017-03-25] MEDS ORDERED: QUELICIN (DOSE) ONE (08:25)
--- NOTE | 2017-03-25 08:29 | Diag Imaging Result Document ---
PROCEDURE NAME: CHEST-PORTABLE - 03/25/2017 PORTABLE CHEST: Compared with 03/24/2017. FINDINGS: Endotracheal tube, nasogastric tube, and central venous catheter remain in place. There is stable mild cardiomegaly. There is basilar atelectasis which appears to have decreased mildly. There is no pneumothorax seen. IMPRESSION: Mild decrease in basilar atelectasis.
--- NOTE | 2017-03-25 08:52 | PROGRESS NOTE ---
DATE: 03/25/2017 CHIEF COMPLAINT: Abdominal pain, hypotension, shock. SUBJECTIVE: Ms. Wei remains intubated. OBJECTIVE: Her vital signs are more stable off of pressors. She is not tachycardic. Pulse right now is 70 to 90, blood pressure 110/70, temperature 98.4, respirations 18. She is sedated. HEENT: Unremarkable. Chest: Symmetrical breath sounds. Heart sounds are regular and rhythmic. No gallop or murmur. Abdomen: Firm. The patient is sedated. No tenderness can be elicited. Extremities showed that they are warmer now. I can feel distal pulses. Neurologic: Sedation is ongoing. The patient does not respond. DIAGNOSTIC DATA: Sodium is 140, potassium 4.8, BUN is 49, creatinine has gone up to 3.3. Her white count went up to 16,550, hemoglobin 10.5. Her EKG today shows sinus rhythm, and the ST-T segment appears to be more normal compared to yesterday. Her chest x-ray today shows mild decrease in basilar atelectasis. It has decreased some. IMPRESSION: 1. The patient presented with catastrophic acute abdomen, peritonitis from perforated gastric ulcer, status post repair by Dr. Chance Florez. Operative report is still pending. 2. The patient has coronary atherosclerosis demonstrated by CT scan. Thus far, she has not suffered an acute myocardial infarction. 3. History of hypertension. 4. Chronic obstructive pulmonary disease. 5. Acute renal failure complicating this present clinical course. RECOMMENDATIONS: From a cardiology viewpoint, the patient appears to be stable. She is off of pressors. She is perfusing distally. I would suggest to get the input of Nephrology for management of acute renal failure. Further advice will be forthcoming. Thank you for the opportunity to participate in her evaluation. cc: Jeremy Brothers MD [facility]
[2017-03-25] MEDS ORDERED: ALBUMIN 25% IV SCH (09:00)
[2017-03-25 09:07] LABS: URINE MICRO REVIEW NEEDED? NO; URINE SOURCE CATH
--- NOTE | 2017-03-25 09:13 | OPERATIVE NOTE ---
PROCEDURE DATE: 03/23/2017 PREOPERATIVE DIAGNOSES: 1. Perforated viscus. 2. Septic shock. 3. Respiratory failure. 4. Coronary artery disease. POSTOPERATIVE DIAGNOSES: 1. Perforated gastric ulcer. 2. Septic shock. 3. Respiratory failure. 4. Coronary artery disease. PROCEDURE PERFORMED: Exploratory laparotomy with omental Lopez patch repair of perforated gastric ulcer. SURGEON: Chance Florez MD ANESTHESIA: General. ESTIMATED BLOOD LOSS: 30 mL. COMPLICATIONS: None apparent. SPECIMENS: None. FINDINGS: She had a dime-sized ulcer on the anterior aspect of her stomach in the prepyloric area. There was no obvious associated gastric mass on palpation. She had a large amount of contamination of gastric and bilious fluid and vegetable matter throughout her abdomen. TECHNIQUE: She was brought to the operating room and placed supine on the table. General anesthesia was induced. She was prepped and draped in the usual sterile fashion. An upper midline incision from the xiphoid to the umbilicus was made with a knife and carried down through the fascia sharply. The peritoneum was then opened sharply. We suctioned out a large amount of contaminated fluid, indicative of ruptured viscus. I opened up the peritoneum and fascia throughout the incision with cautery. A Bookwalter retractor was placed, providing good exposure to her upper abdomen. I suctioned out more fluid in her left upper quadrant and right upper quadrant. Lifting up the left lobe of the liver and falciform ligament, we quickly found the large ulcer, as described above. Given her overall frailty and critical condition, I felt the best repair would be a Lopez patch, so we could get her back in the ICU for further resuscitation and not subject her to a prolonged resection for this ulcer. I mobilized a flap of omentum with the LigaSure and rotated it up over the perforation. It reached easily. I then moved it out of the way and placed a row of 2-0 silk sutures across the ulcer. I did not tie these down until we brought the omental flap up and over the ulcer and tied the sutures down over the omentum, tacking it down over the ulcer in a Lopez patch type repair. It appeared that we had a good snug fit. I then washed out her abdomen in all quadrants and in between the loops of bowel and the pelvis with copious amounts of warm saline and suctioned this out until it seemed that we had good clearance of the murky, contaminated ascites. Two 19 Prateek drains were brought in through separate stab incisions on each side of her abdomen and laid up next to the patch repair. These were sutured to the skin with nylon suture. I then closed the fascia with #1 Prolene in 2 directions. The skin was closed with skin clips. She tolerated the operation without apparent complication and was transferred back to the ICU in guarded condition. cc: Chance Florez MD
[2017-03-25 09:16] LABS: UR EPITHELIAL CELLS <10 /HPF (<10); URINE BACTERIA NEGATIVE /HPF
[2017-03-25 09:20] LABS: BILIRUBIN URINE MODERATE (NEGATIVE); BLOOD URINE LARGE (NEGATIVE); COLOR YELLOW; GLUCOSE URINE NEGATIVE (NEGATIVE); LEUKOCYTES URINE NEGATIVE (NEGATIVE); NITRITE URINE NEGATIVE (NEGATIVE); PH URINE 5.5; PROTEIN URINE 100 mg/dL (NEGATIVE); SP GRAVITY URINE 1.032; TURBIDITY URINE HAZY (CLEAR); UROBILINOGEN URINE NORMAL (NORMAL)
[2017-03-25 09:39] LABS: UR CREAT RANDOM 81.8 mg/dL (11-20); UR PROT RANDOM 213.6 mg/dL
[2017-03-25] MEDS: DUONEB (A & A) INH PRN ×2 (10:14→15:44)
--- NOTE | 2017-03-25 10:44 | PROGRESS NOTE ---
DATE: 03/25/2017 SUBJECTIVE: There have been no acute events overnight. She has been weaned off of pressors. However, she is minimally responsive. OBJECTIVE: Vital Signs: Temperature 98.4, pulse 92, respirations 25, blood pressure 107/70, O2 saturation 98%. General: She is unresponsive and remains intubated. She is not on any sedation. CV: Tachycardic and regular. Respiratory: Bilateral equal breath sounds. GI: Soft, nondistended. Dressing is clean and dry. Her drains are serosanguineous in nature. No tenderness is appreciable. Laboratory: White blood cell count 16,000, hemoglobin 10, hematocrit 31, platelet count 127,000. PH 7.4, pCO2 24, PaO2 86, bicarb 17, base deficit -10, lactate 4.8. BUN 49, creatinine 3.3. Albumin 1.6. ASSESSMENT AND PLAN: This is a 76-year-old female, postoperative day 2 from a Lopez patch repair of perforated gastric ulcer. Her other comorbidities at this time include sepsis with improving hemodynamics, respiratory failure, acute renal failure with worsening BUN and creatinine and little urine output, coronary artery disease, and severe protein calorie malnutrition. Dr. Abarca is now consulted and I will be available for dialysis catheter placement as desired. She should remain on Zosyn. I think the vancomycin could be stopped. We will have to watch her hemoglobin and hematocrit for any further decline as well as her platelet count. I think we can start her back on subcutaneous heparin for deep venous thrombosis prophylaxis as well as intermittent compression devices. Her prognosis appears guarded to poor at this point. cc: Chance Florez MD
--- NOTE | 2017-03-25 10:47 | PROGRESS NOTE ---
DATE: 03/25/2017 SUBJECTIVE: She is, as stated, on the ventilator. Gas exchange appears to be good. OBJECTIVE: Vital Signs: Temp 98.4 degrees, remains afebrile. Pulse 92, respirations 20. Urine output 300 mL yesterday or close to 400 mL. LAB: White count 52990, hematocrit 31, platelet count a 127,000. Elevated white count. Sodium 140, potassium 4.8, chloride 107, bicarb was 12. BUN 49, creatinine 3.3. Blood sugar 104, 123, 108. Calcium 6.9. ASSESSMENT AND PLAN: 1. Perforated viscus/perforated ulcer, status post surgical exploratory laparotomy with repair. 2. Appears to have acute kidney injury. Suspect acute tubular necrosis, perforated viscus, prolonged hypotension, but also 2 CT scans in the last 30 days with contrast versus CT angiogram. Continue volume. 3. Respiratory failure, secondary acidosis, and sepsis. Continue vent support. Wean as able. 4. Sedated. Neurologic function presumed intact. We will have to wait and see how she does off of sedation. Continue broad-spectrum antibiotics. She is on piperacillin and vancomycin. She is on a bicarb drip still. Still metabolic acidosis. Anion gap was 21, creatinine 3.3. cc: Patrick Sorto MD
[2017-03-25] MEDS: CLINIMIX E 4.25%-5% SOLUTION 1,000 ML IV SCH (12:59)
[2017-03-25] MEDS: HEPARIN SUBQ SCH ×2 (13:04→21:06)
--- NOTE | 2017-03-25 13:31 | CONSULTATION ---
DATE OF CONSULTATION: 03/25/2017 REASON FOR CONSULTATION: Acute kidney injury. History is obtained entirely from the chart as the patient is unresponsive. HISTORY OF PRESENT ILLNESS: Ms. Wei is a 76-year-old, white female with a history of asthma, reflux and hypertension. She presented with epigastric pain and right upper quadrant pain. She had been seen in the ER 1 month previously with similar symptoms and this was treated as reflux. Her initial presentation found her to be hemodynamically unstable and she went through an aggressive rapid evaluation that included a pulmonary arteriogram as well as CT of the abdomen. No clear diagnosis was forthcoming. She was treated with empiric broad- spectrum antibiotics, volume resuscitation, vasopressor agents. In this context, she had ongoing hypotension which was severe with blood pressures as low as 62/19 on the . In this context, she developed a progressively rising BUN and creatinine such that her creatinine was 1.0 on presentation and 3.3 today. We are asked to see her and assist with her management. PAST MEDICAL HISTORY: As above. CURRENT MEDICATIONS: 1. Acetaminophen. 2. Albuterol. 3. Ipratropium. 4. Sodium bicarbonate. 5. D5NS. 6. Hydrocortisone. 7. Morphine. 8. Phenylephrine. 9. Norepinephrine. 10. Ondansetron. 11. Pantoprazole. 12. Vancomycin. 13. Zosyn. ALLERGIES: Sulfa. SOCIAL HISTORY: No alcohol or tobacco. FAMILY HISTORY: Otherwise noncontributory. REVIEW OF SYSTEMS: Otherwise not obtainable beyond what is listed. PHYSICAL EXAMINATION: Vital Signs: Blood pressure 107/70, heart rate 93, respirations 25 afebrile, intake 4.2 L. Output 1.1 L. General: No acute distress. She is unresponsive to verbal and tactile stimuli. Pupils are 2 mm. Gaze is somewhat dysconjugate; conjunctivae are pink. Oropharynx is poorly examined, tongue is dry. Endotracheal tube in place. Neck: Neck veins are distended. Heart: Regular. Mildly tachycardic. No murmurs or gallops. Lungs: Have equal breath sounds, coarse. Few scattered crackles. Abdomen: Soft and nontender. Bowel sounds are diminished and there is a surgical dressing midline. Extremities: Have 1+ edema. No clubbing or cyanosis. Neurologic Exam: Nonfocal except for unresponsive as above. LABORATORY DATA: Hemoglobin 10.5, sodium 140, potassium 4.8, chloride 107, bicarbonate 12, BUN 49, creatinine 3.3. Calcium 6.9, FENA less than 1%. Urine sodium 21. IMPRESSION: Acute kidney injury. Low FENA. Her net fluid balance since admission is +9 L. Certainly, she may be 3rd spacing in her abdomen but I do not believe she needs more aggressive volume resuscitation. Her albumin is low and this may be exacerbating the problem. Certainly, her chemistries and time course are consistent with acute tubular necrosis likely related to shock and IV contrast. She has no acute indications for dialysis today. She also has metabolic acidosis presumably related to her acute kidney injury. We will check serum ketones for completeness. Her lactate was 4.8 on her blood gas this morning which is also contributing. cc: Kameron Abarca MD [facility]
--- NOTE | 2017-03-25 14:05 | Diag Imaging Result Document ---
PROCEDURE NAME: US RENAL 2 (RETROPER) COMPLETE - 03/25/2017 RENAL ULTRASOUND: FINDINGS: According to the technologist, the patient is on a ventilator and is unable to move for optimal position. Compared with 03/22/2017. The right kidney measures 9.6 x 4.2 x 5 cm in size. There is no right renal mass or hydronephrosis identified. There is no right renal stone identified. The left kidney is not visualized. The left kidney apparently is obscured by artifacts and bandages on the skin. The urinary bladder is decompressed by a Cosby catheter and is not evaluated. IMPRESSION: 1. No visible right renal abnormality. 2. No right hydronephrosis. 3. The left kidney is obscured by artifacts and is not visualized.
--- NOTE | 2017-03-25 14:32 | CONSULTATION ---
DATE OF CONSULTATION: 03/25/2017 REASON FOR CONSULTATION: Chest pain and reflux. HISTORY OF PRESENT ILLNESS: A 76-year-old lady with a long history of asthma and gastroesophageal reflux, who presented with chest pain, but also has some epigastric pain. She had come to [place] a month ago with a similar problem. She has had a CT of the chest which showed no pulmonary embolism. Had cardiomegaly and distended esophagus, which possibly reflects esophageal stricture. She had an episode of vomiting 2 days ago. No hematemesis, melena, or hematochezia. REVIEW OF SYSTEMS: Twelve point review was negative, other than history of present illness. PAST MEDICAL HISTORY: Asthma, gastroesophageal reflux, and hypertension. PAST SURGICAL HISTORY: Appendectomy, cholecystectomy, and hysterectomy. She does have a history of a ruptured esophagus in 1994. She had a food impaction and at that time she had syndrome. SOCIAL HISTORY: She does not smoke, drink, or illicit drug use. Lives with the son. FAMILY HISTORY: Positive for Alzheimer's in her mother. ALLERGIES: Sulfa. HOME MEDICATION: The patient is not on any current medications. LABORATORY DATA: White count 7.3, hemoglobin 14.7, hematocrit 44, platelets 414,000. PT and PTT is normal. Sodium 140, potassium low at 2.9, chloride is 95. BUN and creatinine normal. Glucose 115. Magnesium 1.6. Total bilirubin 1. AST 394, ALT 504, alkaline phosphatase 77. CT of the thorax shows no pulmonary embolism. It shows distended esophagus which may be related to the stricture or previous repair. No free air. PHYSICAL EXAMINATION: General Appearance: By the time I have seen the patient is not responsive. Vital Signs: Temperature is 96 degrees, heart rate is 90, respirations 18, blood pressure is down to 100/40. General Appearance: She is obtunded, nonresponsive other than for deep pain. Heart: Normal. Lungs: Normal. Abdomen: Distended and tender in the epigastrium. Bowel sounds are present. Extremities: No cyanosis or clubbing. Neurological: Obtunded, nonresponsive. IMPRESSION AND PLAN: 1. The lady who has presented with epigastric and chest pain, history of esophageal rupture, she may have severe esophageal stricture. 2. Recent decrease in mental status and responsiveness. She has received some hydromorphone earlier today and some Haldol because she was restless. I have asked the nurse to give Narcan. 3. General rapid deterioration. We are getting a blood gas and we should have that shortly. 4. No advanced directives. Talked to the son and he is making some decisions; however, we need to attend to this lady. Depending on the blood gases and depending on further radiology, we will make further recommendations. There is a rapid deterioration of the patient's condition. It does not appear to be cardiac. We will follow. I will talk to Dr. Sorto. cc: Merlene Yousif MD
[2017-03-25] MEDS: MYCAMINE 100 MG in NS 100 ML IV SCH (14:33)
[2017-03-25] MEDS ORDERED: CUBICIN (FOR INPATIENT USE) 500 MG in NS 100 ML IV SCH (15:00)
[2017-03-25] MEDS: MORPHINE IV PRN ×3 (15:53→21:26)
[2017-03-25] MEDS: SODIUM CHLORIDE 0.9% INJ SCH (17:36)
--- NOTE | 2017-03-25 17:44 | CONSULTATION ---
DATE OF CONSULTATION: 03/25/2017 CONCLUSION: The patient has a perforated gastric ulcer. As a result of this test, I think she developed a fungemia. Also she has peritonitis from spillage of the gastric contents throughout the abdomen. The patient has a subclavian catheter in place. I doubt it is the origin of the patient's fungemia. One blood culture is growing coag-negative staph. This could be a contaminant. RECOMMENDATIONS: I have discontinued vancomycin because the patient is developing renal failure. I have instead started the patient on daptomycin. The dose has been modified because of the patient's renal failure. Also, I have added micafungin to treat the patient's fungemia. Also I have all ordered cultures from each Abner-Cortes drain that is in the abdomen. DISCUSSION: The patient is only able to give a history. No family member is present. The history was taken from the data in the computer. The patient developed a perforated gastric ulcers. Certain Dr. Chance Florez operated on the patient and close the perforation. Drains were put in place. The patient also has a right subclavian catheter and is intubated. The patient's blood gases show a pH of 7.36, a pO2 of 86, and a pCO2 of 24. The patient's creatinine is 3.3. The GFR is 14. CBC shows a white count of 16,550, hemoglobin 10.5, and platelet count 127,000. Chest x-ray shows bibasilar atelectasis. PAST MEDICAL HISTORY: Positive for asthma, gastroesophageal reflux disease, and hypertension. PAST SURGICAL HISTORY: Positive for appendectomy, cholecystectomy, hysterectomy , and a ruptured esophagus repair in 1994 secondary to food impaction. SOCIAL HISTORY: There is no history of cigarette smoking, alcohol consumption, or illicit drug use. The patient lives with her son. FAMILY HISTORY: Positive for Alzheimer disease. The patient is allergic to sulfa. HOME MEDICATIONS: None listed, but the patient had been taking the son's lisinopril/hydrochlorothiazide once daily as needed for high blood pressure. CT scan of showed no pulmonary embolus. PHYSICAL EXAMINATION: Vital Signs: Temperature is 99.7 degrees, pulse 99, respirations 28, blood pressure 162/79. The patient weighs 159 pounds. General: The patient is intubated and sedated. Head eyes, ears, nose, and throat: No drainage noted from the nose or ears. Patient did not respond to verbal stimuli. She is intubated and has NG tube in place. Neck: No meningismus. Thorax: No increased AP diameter of the chest. The patient does have a right subclavian catheter in place. Lungs: Clear to auscultation. Cardiovascular: Regular heart rate. Abdomen: Soft and not tender. There are bilateral Abner-Cortes drains in place. Neurologic: As mentioned above, the patient did not respond to verbal stimuli during my exam. She did not move her extremities. There was no tremor. Integument: No rash noted. CONCLUSION: The patient does have a subclavian line in place, but I doubt that the fungemia and the one blood culture positive for a coag negative staph originates from the subclavian line. The coag negative staph isolated from one blood culture may be a contaminant also. Thank you for the consult. cc: Leland Sierra MD [facility]
[2017-03-26] MEDS: SOLU-CORTEF IV SCH ×4 (00:42→18:06)
[2017-03-26] MEDS: MORPHINE IV PRN ×3 (00:45→20:39)
[2017-03-26] MEDS: CLINIMIX E 4.25%-5% SOLUTION 1,000 ML IV SCH ×2 (02:19→17:15)
[2017-03-26 04:52] LABS: ALLEN TEST YES; BE -10.1 mmoll (-3.0-3.0); BLOOD TYPE ARTERIAL; DRAW SITE R RADIAL; O2(CT) 11.5 mL/dL (15.0-23.0); PCO2(98.6) 31 mmHg (35-45); PO2(98.6) 122 mmHg (60-100); SAMPLE BLOOD; SAO2 98.3 % (95.0-100.0); SRATE 14 BPM; THB 8.4 g/dL (11.5-17.4); TVOL 500 mL
[2017-03-26 04:53] LABS: MODALITY VENTILATOR
[2017-03-26] MEDS: HEPARIN SUBQ SCH ×3 (05:20→20:39)
[2017-03-26] MEDS: ZOSYN 2.25 GM/NS 2.25 GM/50 ML IVPB IV SCH ×4 (05:24→21:49)
[2017-03-26] MEDS: PROTONIX IV SCH ×2 (05:26→17:16)
[2017-03-26 05:49] LABS: BASO% 0.3 % (0.0-0.8); EOS# 0.01 X1000 (0.0-0.7); EOS% 0.1 % (0.0-10.0); HEMATOCRIT 30.3 % (37.0-47.0); HEMOGLOBIN 10.2 g/dL (12.0-16.0); IMM GRAN# 0.83 X1000 (0.0-0.04); IMM GRAN% 5.3 % (0.0-0.5); LYMPH# 0.73 X1000 (1.2-3.4); LYMPH% 4.7 % (20.5-51.1); MANUAL DIFF NEEDED? YES; MCH 29.1 PG (27-31); MCHC 33.7 g/dL (33-37); MCV 86.3 FL (81-99); MONO% 1.9 % (1.7-9.3); MPV 11.8 FL (7.4-10.4); NEUT% 87.7 % (42.2-75.2); PLT 51 X1000 (130-400); RBC 3.51 XMIL (4.2-5.4)
[2017-03-26 05:58] LABS: CALCIUM 6.8 mg/dL (8.8-10.2); POTASSIUM 4.5 mmol/L (3.5-5.1); TOTAL BILIRUBIN 1.14 mg/dL (0.20-1.00); TOTAL PROTEIN 4.6 g/dL (6.3-8.3)
[2017-03-26] MEDS ORDERED: VANCOMYCIN 1 GM/NS 1 GM/250 ML IVPB IV SCH ×2 (06:00→17:00)
[2017-03-26 06:42] LABS: LYMPHS 4 % (21-51); MONO 4 % (1-9); NRBC 2 % (0-0)
--- NOTE | 2017-03-26 07:17 | EKG Report ---
Test Performed on : 03/26/2017 06:34:24 AM Test Reason : shock/septicemia/CAD/pneumonia Blood Pressure : / mmHG Vent. Rate : 090 BPM Atrial Rate : 090 BPM P-R Int : 158 ms QRS Dur : 090 ms QT Int : 366 ms P-R-T Axes : -03 -31 072 degrees QTc Int : 447 ms Normal sinus rhythm. with sinus arrhythmia. Left axis deviation Abnormal ECG When compared with ECG of 25-MAR-2017 05:46, Nonspecific T wave abnormality no longer evident in Inferior leads Confirmed by Lele Beaulieu MD ([id number]) on 03/26/2017 7:35:48 AM
--- NOTE | 2017-03-26 07:33 | Diag Imaging Result Document ---
PROCEDURE NAME: CHEST-PORTABLE - 03/26/2017 PORTABLE CHEST: COMPARISON: Compared to 03/25/2017. FINDINGS: No change in the right subclavian line, the endotracheal tube, or in the nasogastric tube. Mild increased markings in the bases believed to be atelectasis. I believe there are tiny effusions. The upper mid lungs remain clear. Overall appearance is similar to that of the prior exam. IMPRESSION: Stable chest.
--- NOTE | 2017-03-26 10:17 | PROGRESS NOTE ---
DATE: 03/26/2017 SUBJECTIVE: Ms. Wei has a little bit of what appears to be a myoclonus or ocular myoclonus to left side. Still under sedation. She is still on the ventilator, 100% dependent. PHYSICAL EXAMINATION: Vital Signs: Temperature 98.6 degrees, pulse 80, respirations 16, blood pressure 164/103. HEENT: Pupils were equal. CVP less than 6 cm. Lungs: Clear in all lung dominguez. Cardiovascular Examination: Regular rhythm and rate without murmurs or S3. Is and Os: Urine output is over 4 L. LAB: White count 15,540, hematocrit is 30, platelet count 51,000 which has dropped. Chemistry: Sodium 139, potassium 4.5, chloride 105, BUN 62, creatinine 3.4, calcium 6.8, magnesium not checked at this time. ASSESSMENT AND PLAN: 1. Perforated viscus, perforated ulcer, status post surgical exploratory laparotomy with repair. 2. Appears to have acute kidney injury. Suspect acute tubular necrosis. Perforated viscus, prolonged hypotension. Continue support. Dr. Abarca following. 3. Respiratory failure secondary to acidosis. Acidosis has improved. Blood pressure has come up. We will wean off the ventilator as able. I have no choice but to give her fluid at this point so I am sure we will have some third-spacing. 4. Sedated. Hopefully, neurologic function is intact. We will know more with time. Chest x-ray from today, stable chest. I noticed her platelet counts have dropped. We are going to give her a little bit of calcium today. She had cultures that grew yeast and blood culture with Staphylococcus epidermis. We will watch her platelet count. I hate to change any antibiotics. Dr. Sierra is following. Continue the micafungin, Zosyn. She developed fungemia and peritonitis from spillage of gastric contents of the abdomen. He discontinued the vancomycin because of developing renal failure and the patient is on daptomycin. cc: Patrick Sorto MD
--- NOTE | 2017-03-26 11:24 | PROGRESS NOTE ---
DATE: 03/26/2017 SUBJECTIVE: She remains on the ventilator. OBJECTIVE: Vital Signs: Blood pressure 164/103, heart rate 81, respirations 15, afebrile. Intake 2.6 L; output 2.3 L, but only 300 mL of urine output. HEENT Exam: Unresponsive. Conjunctivae are pink. Pupils are equal. Neck: Neck veins are not appreciated. Heart: Regular. Lungs: Have coarse breath sounds with crackles. Abdomen: Soft. Bowel sounds present. Extremities: Have 3+ edema. No clubbing or cyanosis. IMPRESSION: Acute kidney injury. Oliguric. BUN and creatinine are rising. Moderate metabolic acidosis. I will reach out to the family to consider institution of hemodialysis to assist with management of her uremia and volume status. We will implement this therapy today or tomorrow depending on their availability and the availability of the surgeon. cc: Kameron Abarca MD
--- NOTE | 2017-03-26 13:15 | PROGRESS NOTE ---
DATE: 03/26/2017 SUBJECTIVE: The patient continues critical care with ongoing respiratory failure requiring mechanical ventilation and little urine output. Now needing dialysis. However, she is off of pressors. OBJECTIVE: Vital Signs: Temperature 98, pulse 81, respirations 15, blood pressure 164/103. Urine output 330 mL yesterday. NG tube 1250 mL and bilious. JAYLIN drains put out 315 and 365 mL each and are cloudy, but mostly serosanguineous. General: She is elderly, frail appearing and mechanically ventilated. Neuro: She does respond to pain and opens her eyes, but not following commands for me this morning. CV: Regular rate and rhythm. Respiratory: Bilateral breath sounds. GI: Soft, nontender, nondistended. Incisional dressing is clean and dry. LABORATORY: White blood cell count 15,000, hemoglobin 10, platelet count 51,000. PH 7.3, pCO2 of 31, PaO2 of 122, bicarb 17. Base deficit negative 10, lactate 1.6. Sodium 139, potassium 4.5, chloride 105, CO2 of 15, BUN 62, creatinine 3.4, glucose 102. ASSESSMENT/PLAN: A 76-year-old female, status post Lopez patch repair of perforated gastric ulcer. Now with ongoing acute renal failure and respiratory failure. We have placed a dialysis catheter this afternoon. Dr. Seirra is seeing her and directing her antibiotics. We need to keep an eye on her thrombocytopenia. She is started on Clinimix for nutrition. We do have to hold off any tube feeds at this time as she is having high output from her nasogastric tube. cc: Chance Florez MD
--- NOTE | 2017-03-26 13:38 | PROGRESS NOTE ---
DATE: 03/25/2017 SUBJECTIVE: Patient is currently intubated and vented. She is status post exploratory laparotomy with omental Lopez patch for repair of perforated gastric ulcer on 03/23/[address] Florez. The patient came in with septic shock, respiratory failure, and coronary disease. She is currently postoperative day 2. She was successfully weaned down from the pressors. She is oliguric and is being followed by Dr. Abarca. She is also on broad-spectrum antibiotics because of peritonitis and perforated gastric ulcer. History is obtained from the patient's records and the nursing staff. No documented fever today. OBJECTIVE: Vital signs: Temperature 98.4 degrees, pulse rate of 92, respiratory rate 25, blood pressure of 107/70, saturating 99% on mechanical ventilation, 40% FiO2. Body weight of 159 pounds 4 ounces. BMI 27.3 kg/m2. General: Patient is thinly built, lying in bed, intubated and vented, NG tube in place. HEENT: Pale conjunctivae. No icterus. Positive ET tube. Positive NG tube. Neck: Supple. Chest: Decreased breath sounds. Cardiovascular: Tachycardic. Abdomen: Midline surgical dressing noted. JAYLIN drain noted. Bowel sounds are hypoactive. Extremities: No cyanosis, clubbing. Neurologic: She is nonresponsive. She is not on any pressors at this moment. She was weaned off successfully. She is not on any propofol, although she is getting morphine 2 mg IV q.2 hours as needed by the surgical team. LABS: Her hemoglobin and hematocrit are 10.5 and 31.1, white count of 16.5, platelet count of 127,000, MCV of 87.9. INR 1.04. Sodium 140, potassium 4.8, chloride 107, bicarb 12, anion gap 21, BUN of 49, creatinine 3.3, glucose 108, calcium is 6.9, magnesium 2.1. Total bilirubin is 0.86, AST 515, ALT 220, alkaline phosphatase 114, albumin 1.6. Urinalysis showing positive protein, large amount of blood, moderate bilirubin, positive white cells. Blood cultures showing coagulase-negative Staph. IMPRESSION AND PLAN: 1. Perforated gastric ulcer status post Lopez patch repair on 03/23/[address] Florez, postoperative day 2. Continuing on IV fluids, IV antibiotics, and IV pain control per the primary team. 2. Respiratory failure status intubation and mechanical ventilation per the pulmonary team. 3. Gastrointestinal prophylaxis. Protonix IV b.i.d. Patient had a perforated gastric ulcer. 4. Malnutrition. The patient will benefit from TPN. Will leave it to the discretion of the surgical team and the critical care team. Once cleared by surgery patient should be started on tube feeding. In that regard, dietitian consult should be placed. 5. Anemia. Continue to follow hemoglobin and hematocrit and type and cross and transfuse as needed. 6. Elevated liver enzymes. I think it is secondary to sepsis and surgery. Continue to follow. Avoid any hepatotoxic drugs. 7. History of coronary artery disease. Per the primary care team. 8. Above plan discussed with the patient's nurse and all questions were answered. cc: MD Chance Jane MD Cesar Garcia-Rodriguez, MD Mamoun I. Najjar, MD Reginald D. Gladish, MD Luis N. Villanueva, MD Leroy F. Harris, MD MTDD
--- NOTE | 2017-03-26 13:50 | Diag Imaging Result Document ---
PROCEDURE NAME: CHEST-PORTABLE - 03/26/2017 PORTABLE CHEST: COMPARISON: Compared to study performed earlier. FINDINGS: Interval placement of a right jugular line. The tip overlies the right atrium. No postprocedural pneumothorax. Interval removal of the right subclavian line. No change in the endotracheal tube or the nasogastric tube. IMPRESSION: No postprocedural pneumothorax.
--- NOTE | 2017-03-26 14:01 | OPERATIVE NOTE ---
PROCEDURE DATE: 03/26/2017 PREOPERATIVE DIAGNOSES: Acute kidney injury. POSTOPERATIVE DIAGNOSIS: Acute kidney injury. PROCEDURE: Insertion of central venous dialysis catheter. SURGEON: Chance Florez MD. ESTIMATED BLOOD LOSS: Scant. COMPLICATIONS: None apparent. FINDINGS: The internal jugular vein was visualized with the [facility] ultrasound. It was compressible and patent. TECHNIQUE: She was placed supine in her ICU bed. The right neck was prepped and draped in usual sterile fashion. The internal jugular vein was visualized with the ultrasound and then accessed under ultrasound guidance with the needle. The wire passed through the needle into the vein easily. The needle was removed. A small stab incision was made over the wire. The track was sequentially dilated. A triple-lumen Trialysis catheter was passed over the wire into the vein. The wire was removed. All the ports debra back blood easily and were flushed with saline easily. It was sutured to the skin with nylon suture and a sterile dressing was applied. There were no apparent complications. cc: Chance Florez MD
[2017-03-26] MEDS: MYCAMINE 100 MG in NS 100 ML IV SCH (15:17)
[2017-03-26] MEDS: SODIUM CHLORIDE 0.9% INJ SCH (17:16)
--- NOTE | 2017-03-26 18:43 | PROGRESS NOTE ---
DATE: 03/26/2017 PRESENT ILLNESS: The patient is status post surgery for perforated gastric ulcer. She has a fungemia, which most likely originated from the perforated ulcer. She also has a positive blood culture for Staph epidermidis. This could well be a contaminant. MEDICATIONS: The patient currently is receiving daptomycin, micafungin and Zosyn. PHYSICAL EXAMINATION: Vital Signs: Temperature is 99.6, pulse 88, respirations 19, blood pressure 197/124. General: This is an ill-appearing, elderly female. She is intubated and sedated. Lungs: Clear to auscultation. Cardiovascular: Regular heart rate. Abdomen: Soft. The dressing is intact. Ear, nose and throat. Patient has an orotracheal tube in place and a nasogastric tube in place. Neck: The patient has a right internal jugular catheter in place. The catheter site is not erythematous or swollen. LAB AND X-RAY: Chest x-ray is stable. It shows bibasilar atelectasis, but no pneumonia. The patient's CBC shows a white count of 15,540, hemoglobin 10.2, and platelet count 51,000. Patient's blood gases show a pH of 7.3, a pO2 of 122 and a pCO2 of 31. Creatinine is 3.4. The GFR is 13. The patient's CPK is 1848. ASSESSMENT AND PLAN: 1. The patient is status post surgery for perforated gastric ulcer. 2. She has fungemia and peritonitis. My plan is to continue micafungin and Zosyn, but discontinue daptomycin, since the positive blood culture for Staph is most likely a contaminant. COMORBIDITIES: Include she is elderly. She does have gastroesophageal reflux disease. cc: Leland Sierra MD
[2017-03-26] MEDS: APRESOLINE IV PRN (21:46)
[2017-03-27] MEDS: MORPHINE IV PRN ×3 (00:10→17:23)
[2017-03-27] MEDS: SOLU-CORTEF IV SCH ×4 (00:10→22:00)
[2017-03-27] MEDS: APRESOLINE IV PRN ×2 (02:25→21:47)
[2017-03-27 04:07] LABS: ALLEN TEST YES; BE -9.6 mmoll (-3.0-3.0); BLOOD TYPE ARTERIAL; DRAW SITE R RADIAL; O2(CT) 14.9 mL/dL (15.0-23.0); PCO2(98.6) 31 mmHg (35-45); PO2(98.6) 83 mmHg (60-100); SAMPLE BLOOD; SAO2 97.7 % (95.0-100.0); SRATE 14 BPM; THB 11.2 g/dL (11.5-17.4); TVOL 500 mL; pH(98.6) 7.31 (7.35-7.45)
[2017-03-27 04:08] LABS: MODALITY VENTILATOR
[2017-03-27] MEDS: PROTONIX IV SCH ×2 (04:16→17:23)
[2017-03-27] MEDS: ZOSYN 2.25 GM/NS 2.25 GM/50 ML IVPB IV SCH ×3 (04:16→21:44)
[2017-03-27] MEDS: SODIUM CHLORIDE 0.9% INJ SCH ×2 (04:16→17:23)
[2017-03-27] MEDS: HEPARIN SUBQ SCH ×3 (04:16→21:45)
[2017-03-27] MEDS: CLINIMIX E 4.25%-5% SOLUTION 1,000 ML IV SCH ×2 (05:56→21:44)
[2017-03-27 07:10] LABS: BASO% 1.1 % (0.0-0.8); EOS# 0.01 X1000 (0.0-0.7); EOS% 0.1 % (0.0-10.0); HEMOGLOBIN 10.8 g/dL (12.0-16.0); IMM GRAN# 0.17 X1000 (0.0-0.04); LYMPH# 1.07 X1000 (1.2-3.4); LYMPH% 6.3 % (20.5-51.1); MANUAL DIFF NEEDED? YES; MCH 28.9 PG (27-31); MCHC 33.8 g/dL (33-37); MCV 85.6 FL (81-99); MONO# 1.92 X1000 (0.11-0.59); MONO% 11.3 % (1.7-9.3); MPV 12.2 FL (7.4-10.4); NEUT% 80.2 % (42.2-75.2); PLT 53 X1000 (130-400); RBC 3.74 XMIL (4.2-5.4)
[2017-03-27 07:12] LABS: ALBUMIN 1.8 g/dL (3.5-5.0); CALCIUM 7.5 mg/dL (8.8-10.2); POTASSIUM 5.3 mmol/L (3.5-5.1); TOTAL BILIRUBIN 0.68 mg/dL (0.20-1.00)
--- NOTE | 2017-03-27 07:30 | Diag Imaging Result Document ---
PROCEDURE NAME: CHEST-PORTABLE - 03/27/2017 SINGLE FRONTAL RADIOGRAPH OF THE CHEST: COMPARISON: 03/26/2017. FINDINGS: Right Vas-Cath is in stable position. ET tube and NG tube are stable. Inspiration is suboptimal. There is suggestion of mild atelectasis at the left lung base. Atelectasis appears to have improved at the right lung base. No new consolidations are identified. Cardiac silhouette is stable. IMPRESSION: Improvement of mild atelectasis at the right lung base and stable on the left.
[2017-03-27 07:53] LABS: BANDS 14 % (0-1); LYMPHS 4 % (21-51); MONO 4 % (1-9); NRBC 1 % (0-0)
[2017-03-27] MEDS ORDERED: NS 2,000 ML ONE (07:59)
[2017-03-27] MEDS ORDERED: HEPARIN ONE (07:59)
[2017-03-27] MEDS: DUONEB (A & A) INH PRN (08:19)
--- NOTE | 2017-03-27 09:25 | PROGRESS NOTE ---
DATE: 03/27/2017 SUBJECTIVE: Ms. Wei is in the process of getting dialysis. She is unresponsive. Her eyes are open. She appears comfortable. OBJECTIVE: Temperature 96.8, pulse 70, respirations 15, blood pressure 128/61. Pupils are equal. Lungs are clear in all lung dominguez. Cardiovascular: Regular rhythm and rate without murmur or S3. Abdomen soft. Skin is warm and dry. Urine output is 2.7. LABORATORY DATA: White count 16,980. Hematocrit is 32, platelet count 53,000. Sodium 137, potassium 5.3, chloride 103. Creatinine 3.6. Blood sugar 75, 78, 86. Chest x-ray from this morning: Improvement of mild atelectasis in the right lung base, stable on the left. ASSESSMENT AND PLAN: 1. Perforated gastric ulcer. Has had fungemia, most likely originating from perforated ulcer. Positive blood culture for Staphylococcus epidermis. Receiving daptomycin, micafungin and Zosyn. 2. Respiratory failure. Acidosis. On the ventilator. Good gas exchange. Blood gases this morning: pH of 7.31, pCO2 of 31, PO2 of 80. O2 saturation was 97%. 3. Acute tubular necrosis. Acute renal injury. She has at least 10 L positive. Begin hemodialysis today. I have reviewed current orders. I do not see anything to change at this point. On Zosyn 2.25 mg IV q.6., on micafungin 100 mg IV q. 24 hours. Blood pressure has been doing well. Hydrocortisone 100 mg IV q.6 for stress. Possible adrenal insufficiency. Protonix 40 mg IV q.12 hours. cc: Patrick Sorto MD
--- NOTE | 2017-03-27 10:13 | PROGRESS NOTE ---
DATE: 03/27/2017 SUBJECTIVE: She is on the ventilator. Eyes are open. OBJECTIVE: Vital Signs: Blood pressure 128/61, heart rate 75, respirations 15, afebrile. Intake 1.7 L. Output 1.7 L. Urine output 370 mL. Eyes: Eyes are open. Conjunctivae are pink. Pupils are equal. Skin: Warm and dry with ecchymoses, weeping. Neck: Neck veins are not appreciated. Cardiovascular: Heart is regular and tachycardic. Lungs: Have equal breath sounds, coarse. Few scattered crackles. Abdomen: Soft, nontender. Bowel sounds are not appreciated. Extremities: Have 4+ edema. No clubbing or cyanosis. LABORATORY DATA: Sodium 137, potassium 5.3, chloride 103, bicarbonate 14. BUN 84, creatinine 3.6. IMPRESSION: Acute kidney injury. Now in recovery. SLED today with a 4 potassium bath, 27 bicarbonate, and a goal of 4-6 L ultrafiltration as her blood pressure allows. We will continue this therapy on a daily basis. cc: Kameron Abarca MD
[2017-03-27 11:57] LABS: HEPATITIS PROFILE ACUTE SEE COMMENTS
[2017-03-27] MEDS: MYCAMINE 100 MG in NS 100 ML IV SCH (16:37)
--- NOTE | 2017-03-27 17:44 | Diag Imaging Result Document ---
PROCEDURE NAME: HEAD W/O CONTRAST - 03/27/2017 CT BRAIN WITHOUT CONTRAST: FINDINGS: No parenchymal hemorrhage. No epidural or subdural hematoma. No subarachnoid hemorrhage. There is evidence of a recent left cerebellar infarct. There are also at least mild chronic microvascular ischemic changes. No hydrocephalus. No sinus opacification. IMPRESSION: 1. No hemorrhage. 2. There is evidence of a recent medial left cerebellar infarct. A preliminary report was given at 5:23 p.m..
--- NOTE | 2017-03-27 19:42 | PROGRESS NOTE ---
DATE: 03/27/2017 SUBJECTIVE: She has dialyzed today. She remains unresponsive. OBJECTIVE: Vital signs: She is afebrile. Pulse 73, O2 saturation 99%. Blood pressure 144/92. Urine output 370 mL yesterday. NG tube 550 mL. JAYLIN drains putting out over 100 mL each of bilious fluid. General: She is unresponsive. HEENT: Pupils equal and round. CARDIOVASCULAR: Regular rate and rhythm. Respiratory: Bilateral breath sounds. Gastrointestinal: Soft nondistended. LABORATORY: White blood cell count 16.9, hemoglobin 10.8, platelet count 53,000. PH 7.3, pCO2 31, PaO2 83, bicarb 17. Base deficit -9. Lactate 1.3. BUN 84, creatinine 3.6. IMAGING: Head CT scan was recently called by the radiologist showing a recent left cerebellar infarct. ASSESSMENT/PLAN: A 76-year-old female, status post repair of perforated gastric ulcer with postoperative or perioperative comorbidities of respiratory failure, oliguric acute renal failure, bacteremia, fungemia and now evidence of recent cerebellar stroke. She is off pressors, but is currently receiving dialysis and is maintained on the mechanical ventilator. I think tomorrow the team and family need to consider her overall prognosis, which appears to be growing more dim. cc: Chance Florez MD
--- NOTE | 2017-03-27 20:17 | PROGRESS NOTE ---
DATE: 03/27/2017 PRESENT ILLNESS: The patient is status post surgery for perforated gastric ulcer. She has a fungemia which I think arose from the perforation causing peritonitis. The Abner-Cortes drains are growing gram-positive cocci and gram-negative rods which reflect the fact that there was gastric perforation and the presence of peritonitis. MEDICATIONS: The patient is on a combination of Zosyn and micafungin. PHYSICAL EXAMINATION: Vital Signs: Temperature is 98.2 degrees, pulse 79, respirations 18, blood pressure is 144/72. General: This is an ill-appearing, elderly female. She is intubated and sedated. Lungs: Clear to auscultation. Cardiovascular: Heart rate is regular. Abdomen: Soft. It was not tender. The dressing is intact. Ear, nose and throat: Patient has an orotracheal tube in place and a nasogastric tube in place. Neck: The patient has a right internal jugular catheter. The site is not erythematous or swollen. LABORATORY AND X-RAY: There is not a new x-ray for today. The laboratory shows a CBC with a white count of 16,980, hemoglobin is 10.8, platelet count 53,000. Blood gases show a pH of 7.31, PO2 of 83, pCO2 of 31. Creatinine is 3.6. GFR is 12. Hepatitis panel was nonreactive. As mentioned above, blood cultures growing yeast and Staph epidermis, the Abner-Cortes drains are growing gram-positive cocci and Gram-negative rods. ASSESSMENT AND PLAN: 1. The patient has a perforated gastric ulcer with fungemia and peritonitis. My plan is to continue micafungin and Zosyn pending culture results. 2. Comorbidities: She is elderly. She also has gastroesophageal reflux disease as well as a perforated gastric ulcer. cc: Leland Sierra MD
--- NOTE | 2017-03-27 20:19 | PROGRESS NOTE ---
DATE: 03/27/2017 PRESENT ILLNESS: The patient was admitted to the ICU in a septic condition. It appears that this is secondary to a gram-negative jhoana urinary tract infection. MEDICATIONS: The patient is on vancomycin and aztreonam. She has a severe penicillin allergy. PHYSICAL EXAMINATION: Vital Signs: Temperature is 98.6 degrees, pulse 73, respirations 14, blood pressure 141/74. Generally: This is an obese middle-aged female. She is in no acute distress. Lungs: Clear to auscultation. Cardiovascular: Regular heart rate. Extremities: The left knee is more swollen. It is not draining and movement of the knee does not seem to cause the patient exquisite pain. LABORATORY AND X-RAY: The patient's CBC shows a white count of 12,090, hemoglobin 9.9, and platelet count 378,000. Blood gases show a pH of 7.41, a PO2 of 76 and a pCO2 of 51. Creatinine is 1, GFR is 57. Left knee aspirate culture is negative. Blood cultures are pending. The urine is growing a Gram-negative jhoana. ASSESSMENT AND PLAN: 1. Patient has a Gram-negative jhoana urinary tract infection and a penicillin allergy. My plan is to continue aztreonam pending further culture results. 2. Comorbidities: She has systemic lupus and diabetes. cc: Leland Sierra MD
[2017-03-28 04:17] LABS: ALLEN TEST YES; BE -0.6 mmoll (-3.0-3.0); BLOOD TYPE ARTERIAL; DRAW SITE R RADIAL; METHB 1.6 % (0.0-1.5); O2(CT) 15.3 mL/dL (15.0-23.0); PCO2(98.6) 33 mmHg (35-45); PO2(98.6) 83 mmHg (60-100); SAMPLE BLOOD; SAO2 98.6 % (95.0-100.0); SRATE 14 BPM; THB 11.4 g/dL (11.5-17.4); TVOL 500 mL; pH(98.6) 7.45 (7.35-7.45)
[2017-03-28 04:18] LABS: MODALITY VENTILATOR
[2017-03-28] MEDS: ZOSYN 2.25 GM/NS 2.25 GM/50 ML IVPB IV SCH ×4 (04:57→21:37)
[2017-03-28] MEDS: SOLU-CORTEF IV SCH ×4 (04:57→22:18)
[2017-03-28] MEDS: PROTONIX IV SCH ×2 (04:57→16:25)
[2017-03-28] MEDS: SODIUM CHLORIDE 0.9% INJ SCH ×2 (04:57→16:25)
[2017-03-28] MEDS: MORPHINE IV PRN ×2 (04:57→19:40)
[2017-03-28 05:30] LABS: BASO% 2.8 % (0.0-0.8); EOS# 0.01 X1000 (0.0-0.7); EOS% 0.1 % (0.0-10.0); HEMATOCRIT 33.8 % (37.0-47.0); HEMOGLOBIN 11.3 g/dL (12.0-16.0); IMM GRAN# 0.63 X1000 (0.0-0.04); IMM GRAN% 3.6 % (0.0-0.5); LYMPH# 1.64 X1000 (1.2-3.4); LYMPH% 9.5 % (20.5-51.1); MANUAL DIFF NEEDED? YES; MCH 28.6 PG (27-31); MCHC 33.4 g/dL (33-37); MCV 85.6 FL (81-99); MONO# 2.43 X1000 (0.11-0.59); MONO% 14.1 % (1.7-9.3); MPV 12.5 FL (7.4-10.4); NEUT% 69.9 % (42.2-75.2); PLT 87 X1000 (130-400); RBC 3.95 XMIL (4.2-5.4)
[2017-03-28 06:34] LABS: ALBUMIN 1.9 g/dL (3.5-5.0); CALCIUM 8.3 mg/dL (8.8-10.2); TOTAL BILIRUBIN 0.8 mg/dL (0.20-1.00); TOTAL PROTEIN 5.3 g/dL (6.3-8.3)
--- NOTE | 2017-03-28 06:52 | PROGRESS NOTE ---
DATE: 03/28/2017 SUBJECTIVE: Ms. Wei is a 76-year-old. She is in ICU bed 12. She did respond to me, opened her eyes, a little bit of a shoulder shrug at times, moving all extremities. We noted her platelet count had dropped a little bit, so we will stop her heparin. OBJECTIVE: Vital Signs: She has remained afebrile. Temperature 97.9 degrees, pulse 80, respirations 16, blood pressure 183/89. HEENT and Neck: Pupils are equal. CVP less than 6 cm. Lungs: Clear anterolaterally. Cardiovascular: Regular rhythm and rate without murmur or S3. Abdomen: Soft. Skin: Warm and dry. Urine Output: 4 liters. LABORATORY DATA: White count 17,290, hematocrit 33, platelet count 87,001. Chemistry is pending today. ASSESSMENT AND PLAN: 1. Sepsis from a gastric perforation, viscus perforation, status post surgical repair. She has a gram-negative jhoana, probably grew from the urinary tract infection, and fungemia, so continue vancomycin, aztreonam. She has a severe penicillin allergy. I appreciate Dr. Sierra helping. 2. Perforated gastric ulcer, status post repair. 3. Acute tubular necrosis, acute renal failure. We dialyzed her some yesterday for volume. I suspect we will need to do that for a while. Followed by Dr. Abarca. 4. Nutrition. We need to add nutrition when able. She just had her stomach repaired. Consider nasogastric feeding when able to do so. 5. She had a CT of her head done yesterday. There is evidence of recent medial left cerebellar infarct. Neurologically, thus far she appears to be intact. 6. Respiratory failure. Pulmonary is following. We will try and wean when able from the ventilator. 7. I reviewed all of her orders. I think we will stop her heparin because of the platelet count dipping down some. She is on Zosyn 2.25 mg IV every 6 hours. She is on micafungin 100 mg intravenously every 24 hours, and she is getting Clinimix right now at 70 mL an hour and hydrocortisone 100 mg intravenously every 6 hours. cc: Patrick Sorto MD
--- NOTE | 2017-03-28 07:08 | PROGRESS NOTE ---
DATE: 03/28/2017 SUBJECTIVE: She is not responsive to us today. OBJECTIVE: Vital Signs: Blood pressure 169/87, heart rate 86, respiration 18, afebrile. Intake 1.8 L. Output 5.1 L. General: No acute distress. Skin: Warm and dry. Conjunctivae are pink. Neck: Neck veins not visible. Heart: Regular. Lungs: Equal. No crackles. Abdomen: Soft, nontender. Bowel sounds are not present. Extremities: Have 2+ edema. No clubbing or cyanosis. LABORATORY DATA: Sodium 138, potassium 6.0, chloride 103, bicarbonate 20, BUN 43, creatinine 1.8. Hemoglobin 11.3. IMPRESSION: Acute kidney injury with oliguria. She will have SLED again today with a goal of another 4-5 L of ultrafiltration. We will change the bath to a 3 K bath today, otherwise bicarbonate will be 27. No other changes. cc: Kameron Abarca MD
[2017-03-28] MEDS ORDERED: NS 2,000 ML ONE ×2 (07:10→08:36)
[2017-03-28] MEDS ORDERED: HEPARIN ONE ×2 (07:10→08:36)
--- NOTE | 2017-03-28 07:35 | Diag Imaging Result Document ---
PROCEDURE NAME: CHEST-PORTABLE - 03/28/2017 SINGLE FRONTAL RADIOGRAPH OF THE CHEST: COMPARISON: 03/27/2017. FINDINGS: The tracheostomy tube is in stable position. Right vas cath is stable. NG tube projects below the diaphragm and out of the field of view. There are no new consolidations identified. Mild bibasilar atelectasis is essentially stable. Cardiac silhouette is stable. IMPRESSION: Stable chest.
[2017-03-28 07:54] LABS: BANDS 8 % (0-1); LYMPHS 16 % (21-51); NRBC 2 % (0-0)
[2017-03-28] MEDS: DUONEB (A & A) INH PRN ×3 (08:11→23:09)
--- NOTE | 2017-03-28 10:05 | PROGRESS NOTE ---
DATE: 03/28/2017 Events of last few days reviewed with nurse at the bedside. The patient had a significant case of peritonitis from perforated gastric ulcer. She has developed acute renal failure and presently she is undergoing hemodialysis. The patient remains unresponsive. She is intubated and she is off of pressors. Her blood pressure right now is 200/87, pulse 84. She is on 100% oxygen. Her temperature is 97.8, respirations 16. The patient really does not respond. She moves randomly her lower extremities and she shrugs her shoulders; however, she really does not follow any commands. She does have upgoing toes, plantar response in both feet. Chest reveals symmetrical breath sounds. Heart sounds are regular rhythmic. No gallop or murmur noted. Abdomen: Slightly distended. Bowel sounds are diminished. Extremities : No edema. Neurological exam: As described. BLOOD WORK TODAY: Sodium 138, potassium 6.0, BUN 43, creatinine 1.8. Her white count is 17,000, hemoglobin 11.3. There are 72% neutrophils and 8% bands on her blood count, 2% nucleated RBCs. IMPRESSION: 1.Patient has survived a case of peritonitis with shock. She now is hypertensive. 2. She has developed acute renal failure and presently she is undergoing hemodialysis. They will start hemodialysis in a few moments. 3. Hypertension can be controlled by renal replacement therapy. 4. coronary atherosclerosis noted on CT of chest/abdomen. no evidence of PR thus far. 5. Abnormal Neurological status : Her neurological condition is really worrisome. A CT scan of the head was done yesterday and it reportedly indicates a cerebellar infarct. I would suggest to obtain a Neurology consultation in this case for additional opinion regarding prognosis. From the cardiac viewpoint, the patient does not show evidence that she has suffered a myocardial infarction and at this point in time, we will let the Nephrology team manage her severe hypertension and her fluid overload. We will stand by. Please call me if I can be of any further assistance. cc: Jeremy Brothers MD MTDD
--- NOTE | 2017-03-28 10:10 | PROGRESS NOTE ---
DATE: 03/28/2017 SUBJECTIVE: The patient has no new events overnight. She remains unresponsive to the nursing staff. OBJECTIVE: Vital Signs: She is afebrile. Blood pressure is elevated at 191/77 this morning. Pulse 77, O2 saturation 100%. General: She has her eyes open and will flinch and make some uncoordinated movements, but does not is not following any commands. Respiratory: Bilateral breath sounds. Remains on the ventilator. Cardiovascular: Regular rate and rhythm. Gastrointestinal: Soft, nondistended. Dressing is clean and dry. Her Abner-Cortes drains had bilious fluid. One is putting out about 60 mL yesterday, the other one about 345 mL. Urine output remains less than 200. LABORATORY: White blood cell count 70181, hemoglobin 11, platelet count 87,000. pH 7.45, pCO2 33, PaO2 83, bicarb 24. Base deficit -0.6, lactate 2.6. Potassium 6.0. BUN 43, creatinine 1.8, glucose 107. ASSESSMENT/PLAN: A 76-year-old female with multiple organ failure, status post perforated ulcer repair. Her overall prognosis appears poor. She has also had a recent cerebellar stroke. I will continue to follow along with you. cc: Chance Florez MD
--- NOTE | 2017-03-28 11:35 | CONSULTATION ---
DATE OF CONSULTATION: 03/28/2017 HISTORY OF PRESENT ILLNESS: Ms. Wei is 76 years old and there was [address] of the head, yesterday, showing evidence of possible recent medial left cerebellar infarction. Usual micro ischemic change was noted in the cerebral hemispheres. There is no report of previous scan for comparison. She was admitted about a week ago with chest pain and epigastric pain. Later, she became unresponsive and she was found to have perforated viscus managed surgically. She has been poorly responsive in ICU with mechanical ventilation since then. There is no mention in previous notes of past history of stroke or other neurologic event. PHYSICAL EXAMINATION: On exam now, she is supine, intubated, mechanically ventilated, with multiple IV lines. She did not respond to me. She did not respond to noxious stimulation or to verbal commands. She has full lateral eye movement with passive head turning. Pupils react to bright light. Corneal reflexes are brisk and symmetric. Facial motility appears symmetric. Tone is equal in the limbs. Plantar response is silent bilaterally. There is no meningismus. IMPRESSION/PLAN: Global encephalopathy, attributed to her multiple medical problems. I do not see clinical evidence of increased intracranial pressure, CLIENT SERVICES ANALYST infection, mass. There is CT evidence of cerebellar infarction which may be recent, difficult to county judge with single scan. I do not think this is in any way contributing to her current clinical appearance. Depending on her clinical course, we might consider workup for stroke electively , not urgently. It is reassuring that CT did not show evidence of widespread hypoxic/ischemic change across the hemispheres. I do not see any clinical evidence of seizure now and I do not see anything in previous notes to indicate seizure, but we might consider EEG electively to make sure there is not evidence of subclinical seizure. Thanks for asking me to see Ms. Wei. cc: MD FRANCISCA Clemente III
[2017-03-28] MEDS: CLINIMIX E 4.25%-5% SOLUTION 1,000 ML IV SCH (11:42)
--- NOTE | 2017-03-28 13:47 | Extremity Venous Study ---
PROCEDURE NAME: Venous U/S Bilateral Legs - 03/22/2017 STUDY: Bilateral lower extremity venous duplex study. REFERRING PHYSICIAN: Patrick Sorto MD. READING PHYSICIAN: Chance Florez MD. DENTAL BILLING SPECIALIST: Gloria. INDICATION: Elevated D-dimer. FINDINGS: The deep and superficial veins of both lower extremities were imaged throughout their course. All are compressible with forward flow. No thrombus is appreciated. The bilateral common femoral veins did show reflux on the right side at 0.7 seconds, and on the left side 1.1 seconds. INTERPRETATION: No evidence of deep or superficial venous thrombosis in either lower extremity. There is reflux in the bilateral common femoral veins. cc: Chance Florez MD
[2017-03-28] MEDS: MYCAMINE 100 MG in NS 100 ML IV SCH (16:24)
--- NOTE | 2017-03-28 17:49 | PROGRESS NOTE ---
DATE: 03/28/2017 PRESENT ILLNESS: The patient had a perforated gastric ulcer. She has a peritonitis. She also has a Lashell fungemia. One blood culture grew Staphylococcus epidermidis. I think this is a contaminant and not a pathogen. MEDICATIONS: The patient is taking a combination of Zosyn and micafungin. This is day 5 for Zosyn and day 3 for micafungin. PHYSICAL EXAMINATION: Vital Signs: Temperature is 97.4, pulse 106, respirations 30, blood pressure 120/73. General: The patient is intubated and she is obtunded. Lungs: Clear to auscultation. Cardiovascular: Regular heart rate. Abdomen: Soft. It is not tender. The dressing is intact. LAB AND X-RAY: The CT scan of the head shows a recent left cerebellar infarct. Patient's chest x- ray is clear. Her blood gases show a pH of 7.45, PO2 of 83, pCO2 of 33. Creatinine is 1.8. GFR is 28. [place] [address], hemoglobin 11.3, and platelet count 87,000. ASSESSMENT AND PLAN: The patient has a Lashell fungemia for which I will be continuing micafungin and a gram-negative jhoana urinary tract infection along with a severe penicillin allergy for which I will continue aztreonam. COMORBIDITY: She has systemic lupus and diabetes and recently had a gastric perforation. cc: Leland Sierra MD
[2017-03-29] MEDS: CLINIMIX E 4.25%-5% SOLUTION 1,000 ML IV SCH ×2 (01:33→17:11)
[2017-03-29] MEDS: DUONEB (A & A) INH PRN ×3 (03:48→16:56)
[2017-03-29] MEDS: APRESOLINE IV PRN (04:29)
[2017-03-29] MEDS: PROTONIX IV SCH ×2 (04:30→17:25)
[2017-03-29] MEDS: SOLU-CORTEF IV SCH ×4 (04:30→22:43)
[2017-03-29] MEDS: ZOSYN 2.25 GM/NS 2.25 GM/50 ML IVPB IV SCH ×4 (04:30→22:29)
[2017-03-29 04:45] LABS: ALLEN TEST YES; BLOOD TYPE ARTERIAL; DRAW SITE R RADIAL; METHB 1.9 % (0.0-1.5); O2(CT) 16.1 mL/dL (15.0-23.0); PCO2(98.6) 29 mmHg (35-45); PO2(98.6) 121 mmHg (60-100); SAMPLE BLOOD; SAO2 99.4 % (95.0-100.0); SRATE 14 BPM; THB 11.8 g/dL (11.5-17.4); TVOL 500 mL; pH(98.6) 7.48 (7.35-7.45)
[2017-03-29 04:46] LABS: MODALITY VENTILATOR
[2017-03-29] MEDS ORDERED: NS 2,000 ML ONE (07:29)
[2017-03-29] MEDS ORDERED: HEPARIN ONE (07:29)
[2017-03-29 07:56] LABS: HEMATOCRIT 33.6 % (37.0-47.0); HEMOGLOBIN 11.3 g/dL (12.0-16.0); MCH 28.8 PG (27-31); MCHC 33.6 g/dL (33-37); MCV 85.5 FL (81-99); MPV 12.4 FL (7.4-10.4); RBC 3.93 XMIL (4.2-5.4)
[2017-03-29 08:29] LABS: ALBUMIN 1.9 g/dL (3.5-5.0); CALCIUM 8.3 mg/dL (8.8-10.2); POTASSIUM 5.3 mmol/L (3.5-5.1)
--- NOTE | 2017-03-29 08:59 | PROGRESS NOTE ---
DATE: 03/29/2017 SUBJECTIVE: She is more awake today. She did look at me and nod in response to my greeting. No other interaction. OBJECTIVE: Vital signs: Blood pressure 206/106, heart rate 100, respirations 17, temperature 99.1. Intake 2 L, output 4.7 L. General: In no acute distress. Skin: Warm and dry. HEENT: Conjunctivae are pink. Pupils are equal. Neck: Neck veins are not appreciated. Heart: Regular, tachycardic, no gallops or murmurs. Lungs: Equal breath sounds, coarse, with a few scattered crackles. Abdomen: Soft, nontender. Bowel sounds are not appreciated. Extremities: 2+ edema, no clubbing or cyanosis. LABORATORY DATA: Pending currently. IMPRESSION: Acute kidney injury. She will undergo SLED again today. I have not made a decision yet about her potassium management because her labs are pending. She does have some potassium in her IV nutrition which may be affecting her serum potassium. Acid-base is in target, and her volume status is improving. cc: Kameron Abarca MD
--- NOTE | 2017-03-29 11:47 | PROGRESS NOTE ---
DATE: 03/29/2017 The patient is in the ICU in bed 12. Ms. Wei was noted to be awake and alert, following some simple commands earlier today. Now, she did seem to become alert when I called her name. She did not follow commands for me. Limb tone is diffusely diminished, but symmetric. There is no meningismus. She has full lateral eye movement with head turning. Earlier, she was noted to move both arms and to move the left leg, but not the right. This is relatively reassuring in light of the reported CT finding of left cerebellar infarction. I do not have any new suggestion today. This still seems mostly global encephalopathy related to her multiple medical problems. I do not see definite clinical evidence of cerebral stroke or other primary PAPER INSPECTOR problem. Still, I do not think the left cerebellar infarction is clinically relevant at this time. cc: Sasha Parkinson III, MD
--- NOTE | 2017-03-29 12:03 | Diag Imaging Result Document ---
PROCEDURE NAME: CHEST-PORTABLE - 03/29/2017 PORTABLE SUPINE CHEST: COMPARISON: 03/28/2017. FINDINGS: The endotracheal tube remains in good position. No change in the right jugular line or in the nasogastric tube. The lungs are well expanded. The heart is not enlarged. The vessels are not distended. No pleural effusion is identified. Improved aeration in the lung bases with decreased atelectasis. IMPRESSION: Overall interval improvement.
[2017-03-29 12:51] LABS: INR 1.96; PROTIME 21.5 Seconds (9.2-11.7)
--- NOTE | 2017-03-29 15:32 | PROGRESS NOTE ---
DATE: 03/29/2017 SUBJECTIVE: Today, Ms. Wei continued to be stable, but critical. No acute complaints. She was getting her dialysis when I saw her earlier today. OBJECTIVE: Vital signs: Blood pressure is 124/59, pulse of 104, respirations 26, temperature 98.1. General: Ms. Wei is a 76-year-old, female. She was in bed. HEENT: Mucosa is pink and moist. Anicteric. Acyanotic. Neck: Supple. Chest: Air entry is bilaterally reduced. There are a few bibasilar crepitations. Cardiovascular: Regular rate and rhythm. Abdomen: Soft. There is a sterile dressing over the surgical wound in mid abdomen. There is bilateral JPT drainage on the sides. Extremities: No pedal edema. DIRECTOR OF EARLY CHILDHOOD EDUCATION: Patient is unresponsive. The eye globes are actively deviated to the right, especially the right eye. The left eye is somehow midpoint. The pupils are equal, and sluggishly reactive. Patient really did not make any movement or did not move at all to me even with painful stimulation. I understand she did something early on today. Not quite sure or if she is just tired, or because she is going to dialysis. LABORATORY DATA: WBC is 27.12, hemoglobin is 11.3, platelet count is 144. Chemistry is reviewed. Sodium is 135, potassium 5.3, chloride is 20, creatinine is 1.7. ASSESSMENT: 1. Sepsis from acute peritonitis from gastric perforation, status post repair. 2. Acute hypoxemic respiratory failure. Patient continues to be on the ventilator. 3. Lashell glabrata bacteremia and Staph enterococcus epidermidis bacteremia. Patient is on medications and is being followed by Infectious Disease. 4. Enterobacter asburiae and Lashell glabrata peritonitis. 5. Acute kidney injury secondary to acute tubular necrosis. Patient is continued with dialysis. 6. Recent left cerebellar stroke noted. In general, Ms. Wei continued to be critical, but stable. We are going to continue with the current care. The patient is on Clinimix, p.r.n. hydralazine, hydrocortisone 100 IV q.6. Micafungin 100 mg IV daily. Zosyn 2.25 q.6. Patient is being followed by Nephrology, Neurology, Cardiology, Infectious Disease, Surgery and Pulmonary medicine. cc: MD FRANCISCA Escalera
--- NOTE | 2017-03-29 16:31 | Diag Imaging Result Document ---
PROCEDURE NAME: CHEST-PORTABLE - 03/29/2017 SINGLE FRONTAL RADIOGRAPH OF THE CHEST: COMPARISON: 03/29/2017. FINDINGS: There is a newly placed left PICC line. The tip projects over the lower SVC just superior to the atriocaval junction in the expected position. The ET tube and right central catheter are in stable positions. There are no new consolidations. The chest is stable, otherwise. IMPRESSION: Interval placement of left PICC line as described. Stable chest, otherwise.
[2017-03-29] MEDS: MYCAMINE 100 MG in NS 100 ML IV SCH (17:06)
[2017-03-29] MEDS: SODIUM CHLORIDE 0.9% INJ SCH (17:25)
--- NOTE | 2017-03-29 18:03 | PROGRESS NOTE ---
DATE: 03/29/2017 SUBJECTIVE: The patient apparently has been following commands with other providers and the nurses earlier today. After dialysis, she has been more lethargic this evening. OBJECTIVE: Vital Signs: She is afebrile. Vital signs are stable. General: She is at this time quite somnolent and not really arousable. HEENT: Pupils equal, round, and reactive to light. Respiratory: Bilateral breath sounds. She remains on the ventilator. CV: Regular rate and rhythm. GI: Soft and nondistended. Hypoactive bowel sounds. The JAYLIN drains have bile-tinged fluid. LABORATORY: White blood cell count 27,000, hemoglobin 11, hematocrit 33. PH 7.5, pCO2 of 29, PaO2 121, bicarb 24. Base deficit -1. Lactate 3.1. BUN is 51, creatinine 1.7. ASSESSMENT AND PLAN: A 76-year-old female with multiple organ failure, status post repair of perforated gastric ulcer. We will continue supportive care with dialysis and the ventilator. We probably need to consider total parenteral nutrition. She is being treated by Dr. Sierra for fungemia and bacteremia, as well as multiorgan and fungal peritonitis. We also could consider some slow trophic tube feeds in the next few days through her nasogastric tube. My partners with [facility] will continue rounding on her in my absence as I am out of town for the next 5 days. cc: Chance Florez MD
[2017-03-29] MEDS: LEVOPHED 8 MG in D5 1/2 NS 250 ML IV SCH ×2 (18:05→23:30)
[2017-03-29] MEDS ORDERED: D50W SYRINGE ONE (18:23)
--- NOTE | 2017-03-29 20:44 | PROGRESS NOTE ---
DATE: 03/29/2017 PRESENT ILLNESS: Patient has a perforated gastric ulcer with resulting peritonitis. She also has a Lashell fungemia. There was 1 blood culture which grew Staph epidermidis. I consider this is a contaminant and not a pathogen. MEDICATIONS: The patient has been on Zosyn for 6 days and micafungin for 4 days. PHYSICAL EXAMINATION: Vital Signs: Temperature is 97.7 degrees, pulse 107, respirations 31, blood pressure 90/72. General: This is an ill-appearing elderly female. She is intubated and sedated. Ear, nose and throat: She has an orotracheal tube in place and a nasogastric tube in place. Neck: The patient has an internal jugular venous dialysis catheter in place. The site is not erythematous. Lungs: Clear to auscultation. Cardiovascular: Regular heart rate. Abdomen: Soft. It is not tender. The dressing is intact. Extremities: The patient has a PICC in her left arm. That site is not erythematous either. LAB AND X-RAY: The chest x-ray shows no consolidation. The CBC shows a white count of 27,130, hemoglobin 11.3 and platelet count 144,000. The blood gases show a pH of 7.48, a PO2 of 121 and a pCO2 of 29. Creatinine is 1.7. GFR is 29. ASSESSMENT AND PLAN: The patient has Lashell fungemia and peritonitis. I plan to continue micafungin and Zosyn. COMORBIDITIES: Include systemic lupus, diabetes and perforated gastric ulcer. cc: Leland Sierra MD
[2017-03-29] MEDS ORDERED: NS 500 ML IV ONE (21:22)
[2017-03-29] MEDS: NEO-SYNEPHRINE 50 MG in NS 250 ML IV SCH (22:41)
[2017-03-30 00:10] VITALS: BP 103/87
[2017-03-30] MEDS ORDERED: NS IV ONE (01:30)
[2017-03-30] MEDS ORDERED: NS 1,000 ML ONE (03:13)
[2017-03-30] MEDS ORDERED: EPINEPHRINE SYRINGE IV ONE (03:39)
[2017-03-30] MEDS ORDERED: D50W SYRINGE IV ONE (03:39)
--- NOTE | 2017-03-31 23:02 | DISCHARGE SUMMARY ---
ADMISSION DATE: 03/22/2017 DISCHARGE DATE: 03/30/2017 DISCHARGE/ NOTE: DATE OF ADMISSION: 03/22/2017. DATE OF : 03/30/2017 at 0105. CONSULTATIONS DURING THIS ADMISSION: 1. Cardiology was consulted. Patient was seen by Dr. Brothers. 2. Surgery was consulted. Patient was seen by Dr. Florez. 3. GI was consulted. Patient was seen by Dr. Gonzalez. 4. Nephrology was consulted. Patient was seen by Dr. Abarca. 5. ID was consulted. Patient was seen by Dr. Sierra. 6. Neurology was consulted. Patient was seen by Dr. Pariknson. DIAGNOSES AT THE TIME OF : 1. Septic shock. 2. Acute hypoxemic respiratory failure. The patient was on the ventilator. 3. Lashell glabrata bacteremia and Staphylococcus epidermidis bacteremia. 4. Lashell glabrata and Enterobacter peritonitis. 5. Acute kidney injury, secondary to acute tubular necrosis. 6. Recent left cerebellar stroke. 7. Multiorgan failure. INTERVENTIONS DONE DURING THIS ADMISSION: 1. Exploratory laparotomy, with omental Lopez patch repair of perforated gastric ulcer was done by Dr. Florez on 03/23/2017. 2. An insertion of a central venous dialysis catheter was done by Dr. Florez on 03/26/2017. PRESENTING COMPLAINT: Chest pain. HISTORY OF PRESENTING COMPLAINT: Ms. Wei was a 76-year-old female with multiple comorbidities, who presented to the emergency department because of chest pain. Patient has been to [place] about a month ago for a similar complaint. Patient was evaluated, and it was deemed necessary to admit her for further medical workup. HOSPITAL COURSE: The patient did not really do well during the hospital stay. She did develop acute peritonitis, with decompensating hemodynamics. The patient was evaluated by multiple subspecialties. A decision was made to intervene surgically, which was done by Dr. Florez. Kidney functions also got compromised, and the decision was made to have her dialyzed. During the entire hospital stay, the patient did not show any improvement, rather deterioration. On 03/23/2016, the patient had an episode of code, which ran from 1550 to about 1620, and they were able to get some pulse. Subsequently in the hospital course, the patient started receiving dialysis. However, on 03/30/2017 at 0105, the patient was noted to have asystole on monitor. By that time, the patient was DNR/DNI, so the family was notified. The on-call physician was also notified. The patient was pronounced by 2 ICU nurses. cc: David Russo MD
--- NOTE | 2017-04-01 06:25 | EKG Report ---
Test Performed on : 03/30/2017 00:32:41 AM Test Reason : RHYTHM CHANGE Blood Pressure : / mmHG Vent. Rate : 203 BPM Atrial Rate : 138 BPM P-R Int : 000 ms QRS Dur : 156 ms QT Int : 258 ms P-R-T Axes : 000 146 080 degrees QTc Int : 474 ms Wide QRS tachycardia. with frequent premature ventricular complexes. Nonspecific intraventricular block Inferior infarct , age undetermined Abnormal ECG When compared with ECG of 26-MAR-2017 06:34, Wide QRS tachycardia. has replaced Sinus rhythm. Vent. rate has increased BY 113 BPM Confirmed by Lele Beaulieu MD ([id number]) on 04/01/2017 11:20:54 AM
--- NOTE | 2017-04-07 12:16 | PROGRESS NOTE ---
DATE: 03/24/2016 SUBJECTIVE: Ms. Wei went for surgery, had a perforated ulcer. Yesterday after I had seen the patient had emergency surgery. Patient is currently intubated. OBJECTIVE: Vital Signs: Temperature 98 degrees, pulse 100, respirations 20, blood pressure 124/70. HEENT: Pupils equal, reacting to light. Lungs: Clear. Heart: Normal first and second heart sounds. No gallop or rub. Abdomen: Recent surgical scar well healed. Dressings are clean, no bowel sounds yet. Urine output 720 mL. Yesterday, output was 6 L during and after surgery. LABORATORY: White count 11,000. Hematocrit 38, BUN 38, creatinine 2.8. IMPRESSION AND PLAN: 1. Perforated viscus status post laparotomy and repair. 2. Sepsis secondary to #1. 3. Acidosis is improving. Blood gases are improving. Blood pressure is improving. 4. Currently intubated. is following and he will do the extubation. 5. Currently NPO. NG tube is in position. 6. Dr. Abarca will be following, her creatinine 2.8, which may be related to the hypotension prior to her surgery. I have nothing to offer other than following, and I hope the patient will continue to improve. cc: Merlene Yousif MD
== END 2017-03-30 01:05 | disposition expired ==
LOC: ED 00:19 → 3N 06:54 → SUATTDRO 06:54 → ICU 03-23 16:29
PROVIDERS: ATTEND Internal Medicine